=== PATIENT | male | born 1970 | race American Indian/Alaskan Native ===

== ENCOUNTER 2017-11-12 00:47 | Emergency (ER) | payer MEDICAID ==
[2017-11-12 00:58] VITALS: RESP 16; TEMP 98.5; BMI 39.0
--- NOTE | 2017-11-12 01:34 | ED PDOC ---
Arrival/HPI - General Historian: Patient <Christelle Chew A - Last Filed: 11/12/17 01:31> <Bernard Herman - Last Filed: 11/12/17 01:44> - General Chief Complaint: Medical Clearance Time Seen by Provider: 11/12/17 01:26 - History of Present Illness Narrative History of Present Illness (Text): 11/12/17 01:31 47yo male biba for generalized bodyache. Patient reports pain in his back, neck , foot and ankle. states he was seen by his PMD on Monday and had xray done. States he was given unknown analgesic, but his pharmacy will not fill it till Monday. He did not take any analgesic. He denies fever, chills, nausea, vomiting , chest pain, dizziness, trauma, focal weakness, any other complaint. (Christelle Chew A) Past Medical History - Provider Review Nursing Documentation Reviewed: Yes - Neurological Other/Comment: "I AM DISABLED" - Endocrine/Metabolic Other/Comment: "I HAD A LITTLE DIABETES BEFORE" - Psychiatric Hx Depression: Yes Hx Substance Use: No - Surgical History Other/Comment: "EAR ,NOSE,THROAT SURGERY" <Christelle Chew A - Last Filed: 11/12/17 01:31> Family/Social History - Physician Review Nursing Documentation Reviewed: Yes Family/Social History: Unknown Family HX Smoking Status: Unknown If Ever Smoked Hx Alcohol Use: No Hx Substance Use: No <Christelle Chew A - Last Filed: 11/12/17 01:31> Allergies/Home Meds <Christelle Chew A - Last Filed: 11/12/17 01:31> <Bernard Herman - Last Filed: 11/12/17 01:44> Allergies/Adverse Reactions: Allergies No Known Allergies Allergy (Unverified 04/06/17 01:01) Review of Systems - Physician Review All systems were reviewed & negative as marked: Yes - Review of Systems Constitutional: Normal Eyes: Normal ENT: Normal Respiratory: Normal Cardiovascular: Normal Gastrointestinal: Normal Genitourinary Male: Normal Musculoskeletal: Myalgias (Generalized bodyache) Skin: Normal Neurological: Normal Endocrine: Normal Hemo/Lymphatic: Normal Psychiatric: Normal <Christelle Chew A - Last Filed: 11/12/17 01:31> Physical Exam Vital Signs Reviewed: Yes Temperature: Afebrile Blood Pressure: Normal Pulse: Regular Respiratory Rate: Normal Appearance: Positive for: Well-Appearing, Non-Toxic, Comfortable Pain Distress: None Mental Status: Positive for: Alert and Oriented X 3 - Systems Exam Head: Present: Atraumatic, Normocephalic Pupils: Present: PERRL Extroacular Muscles: Present: EOMI Conjunctiva: Present: Normal Mouth: Present: Moist Mucous Membranes Neck: Present: Normal Range of Motion Respiratory/Chest: Present: Clear to Auscultation, Good Air Exchange. No: Respiratory Distress, Accessory Muscle Use Cardiovascular: Present: Regular Rate and Rhythm, Normal S1, S2. No: Murmurs Abdomen: Present: Normal Bowel Sounds. No: Tenderness, Distention, Peritoneal Signs Back: Present: Normal Inspection Upper Extremity: Present: Normal Inspection. No: Cyanosis, Edema Lower Extremity: Present: Normal Inspection. No: Edema Neurological: Present: GCS=15, CN II-XII Intact, Speech Normal Skin: Present: Warm, Dry, Normal Color. No: Rashes Psychiatric: Present: Alert, Oriented x 3, Normal Insight, Normal Concentration <Christelle Chew - Last Filed: 11/12/17 01:31> Vital Signs Temp Pulse Resp BP Pulse Ox 11/12/17 00:58 98.5 F 87 16 116/80 97 Medical Decision Making <Christelle Chew - Last Filed: 11/12/17 01:31> <Bernard Herman - Last Filed: 11/12/17 01:44> ED Course and Treatment: 11/12/17 01:35 PT is hemodynamically stable in ED. Ambulatory with steady gait. He had no focal neurological deficit. He notes that his pain is more on his foot/ankle. He have a prescription at his pharmacist for pain. His pain was controlled in ED with Toradol. 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 He was referred to his PMD. TRT ED for any new symptoms. (Christelle Chew) - Medication Orders Current Medication Orders: Discontinued Medications Ketorolac Tromethamine (Toradol) 60 mg IM STAT STA Stop: 11/12/17 01:35 - PA / [employer] / Resident Statement MD/DO has reviewed & agrees with the documentation as recorded. <Bernard Herman - Last Filed: 11/12/17 01:44> Disposition/Present on Arrival - Present on Arrival Any Indicators Present on Arrival: No History of DVT/PE: No History of Uncontrolled Diabetes: No Urinary Catheter: No History of Decub. Ulcer: No History Surgical Site Infection Following: None - Disposition Have Diagnosis and Disposition been Completed?: Yes Disposition Time: 01:35 Patient Plan: Discharge <Christelle Chew - Last Filed: 11/12/17 01:31> <Bernard Herman - Last Filed: 11/12/17 01:44> - Disposition Diagnosis: Myalgia Disposition: HOME/ ROUTINE Condition: STABLE Discharge Instructions (ExitCare): Musculoskeletal Pain (ED) Additional Instructions: Fill your prescription and take as directed follow up with your doctor Return to ED for any new symptoms Referrals: Elina Garcia MD [Primary Care Provider] - Follow up with primary Forms: [employer] ([place])
[2017-11-12 02:07] VITALS: BP 119/63; PULSE 73; O2SAT 99
== END 2017-11-12 02:07 | disposition home or self-care (01) ==
LOC: ED 00:47
DX: M79.1 Myalgia (principal)
CPT/HCPCS: 96372; 99282; J1885

== ENCOUNTER 2018-03-03 10:25 | Inpatient (IN) | payer MEDICARE, MEDICAID ==
[2018-03-03 10:25] VITALS: BMI 39.0
[2018-03-03 11:21] LABS: BASO # 0.02 K/mm3 (0.0-2.0); BASO % 0.4 % (0.0-3.0); EOS % 0.8 % (1.5-5.0); GRAN # 2.79 (1.4-6.5); GRAN % 58.1 % (50.0-68.0); HEMOGLOBIN 12.5 g/dL (14.0-18.0); LYMPH # 1.6 (1.2-3.4); LYMPH % 32.8 % (22.0-35.0); MEAN CELL VOLUME 87.4 fl (80.0-105.0); MEAN CORPUSCULAR HEMOGLOBIN 27.6 pg (25.0-35.0); MEAN CORPUSCULAR HGB CONC 31.6 g/dl (31.0-37.0); MEAN PLATELET VOLUME 12.8 fl (7.0-11.0); MONO # 0.4 (0.1-0.6); MONO % 7.9 % (1.0-6.0); RBC 4.53 10^6/uL (3.5-6.1); RED CELL DISTRIBUTION WIDTH 15.7 % (11.5-14.5); WHITE BLOOD COUNT 4.8 10^3/ul (4.5-11.0)
[2018-03-03 11:28] LABS: INR 1.07 (0.93-1.08); PROTHROMBIN TIME 12.3 SECONDS (9.4-12.5)
[2018-03-03 11:29] LABS: PARTIAL THROMBOPLASTIN TIME 30.7 Seconds (25.1-36.5)
[2018-03-03 11:33] LABS: VENOUS BLOOD GAS BASE EXCESS 4.5 mmol/L (0.0-2.0); VENOUS BLOOD GAS PO2 58 mm/Hg (30-55); VENOUS BLOOD PH 7.33 (7.32-7.43)
[2018-03-03 11:37] LABS: ALB/GLOB RATIO 1.2 (1.1-1.8); ALBUMIN 4.2 g/dL (3.0-4.8); ALT/SGPT 38 U/L (7-56); AST/SGOT 37 U/L (17-59); BLOOD UREA NITROGEN 17 mg/dL (7-21); CALCIUM 9.1 mg/dL (8.4-10.5); GFR AFRICAN-AMERICAN > 60; GFR NON-AFRICAN AMERICAN > 60
[2018-03-03 11:41] LABS: B-TYPE NATRIURETIC PEPTIDE 22.3 pg/mL (0-450)
[2018-03-03 11:45] LABS: TROPONIN I < 0.01 ng/mL
[2018-03-03 11:48] LABS: CK-MB 4.3 ng/mL (0.0-3.6)
--- NOTE | 2018-03-03 11:52 | RAD ---
HISTORY: rout med exam COMPARISON: No prior. TECHNIQUE: Chest PA and lateral FINDINGS: LUNGS: No active pulmonary disease. PLEURA: No significant pleural effusion identified. No pneumothorax apparent. CARDIOVASCULAR: Normal. OSSEOUS STRUCTURES: No significant abnormalities. VISUALIZED UPPER ABDOMEN: Normal. OTHER FINDINGS: None. IMPRESSION: No active disease.
[2018-03-03] MEDS ORDERED: Aspirin 325 mg EC Tablets PO STA (12:01)
[2018-03-03] MEDS ORDERED: Nitroglycerin 2% Ointment Foilpak UD TOP STA (12:01)
--- NOTE | 2018-03-03 12:02 | ED PDOC ---
Arrival/HPI - General Chief Complaint: Chest Pain Time Seen by Provider: 03/03/18 10:36 Historian: Patient - History of Present Illness Narrative History of Present Illness (Text): 03/03/18 12:02 A 47 year old obese male, whose past medical history includes diabetes, but denies hypertension, presents to the emergency department for chest pain "squeezing," which began 2 weeks ago. The patient states that the pain is gradually increasing and at first it began as 1 episode a day and now it is multiple episodes a day. The patient is complaining of associated shortness of breath and dizziness. He denies any OTC medication usage, fever, abdominal pain , or any other complaints at this time. Time/Duration: > week (2 weeks) Symptom Onset: Gradual Symptom Course: Other Quality: Other (squeezing) Severity Level: Mild Activities at Onset: Light Context: Home Past Medical History - Provider Review Nursing Documentation Reviewed: Yes - Cardiac Hx Cardiac Disorders: Yes - Pulmonary Hx Respiratory Disorders: No - Neurological Hx Neurological Disorder: Yes HX Cerebrovascular Accident: Yes Other/Comment: "I AM DISABLED" - HEENT Hx HEENT Disorder: No - Renal Hx Renal Disorder: No - Endocrine/Metabolic Hx Endocrine Disorders: Yes Hx Diabetes Mellitus Type 2: Yes Other/Comment: "I HAD A LITTLE DIABETES BEFORE" - Hematological/Oncological Hx Blood Disorders: No - Integumentary Hx Dermatological Disorder: No - Musculoskeletal/Rheumatological Hx Musculoskeletal Disorders: No - Gastrointestinal Hx Gastrointestinal Disorders: No - Genitourinary/Gynecological Hx Genitourinary Disorders: No - Psychiatric Hx Psychophysiologic Disorder: Yes Hx Anxiety: Yes Hx Depression: Yes Hx Schizophrenia: Yes Hx Substance Use: No - Surgical History Hx Tonsillectomy: Yes Other/Comment: "EAR ,NOSE,THROAT SURGERY" Family/Social History - Physician Review Nursing Documentation Reviewed: Yes Family/Social History: No Known Family HX Smoking Status: Unknown If Ever Smoked Hx Alcohol Use: No Hx Substance Use: No Allergies/Home Meds Allergies/Adverse Reactions: Allergies No Known Allergies Allergy (Unverified 03/03/18 10:34) Home Medications: Home Meds Medication Instructions Recorded Confirmed Atorvastatin [Lipitor] 20 mg PO DAILY 03/03/18 03/03/18 Cetirizine HCl [Zyrtec Allergy] 10 mg PO DAILY 03/03/18 03/03/18 Cyclobenzaprine [Cyclobenzaprine 10 mg PO DAILY 03/03/18 03/03/18 HCl] Diclofenac Sodium [Voltaren] 100 gm TP BID 03/03/18 03/03/18 Fluticasone Nasal [Flonase] 2 sprays NS DAILY 03/03/18 03/03/18 Montelukast [Singulair] 10 mg PO DAILY 03/03/18 03/03/18 metFORMIN [glucOPHAGE] 500 mg PO BID 03/03/18 03/03/18 traMADol [Ultram] 50 mg PO BID 03/03/18 03/03/18 Review of Systems - Physician Review All systems were reviewed & negative as marked: Yes - Review of Systems Constitutional: absent: Fevers Respiratory: SOB Cardiovascular: Chest Pain Gastrointestinal: absent: Abdominal Pain Neurological: Dizziness Physical Exam Vital Signs Reviewed: Yes Vital Signs Temp Pulse Pulse Resp BP Pulse Ox 03/03/18 15:00 69 18 131/73 97 03/03/18 14:50 97.9 F 91 H 91 H 19 129/83 03/03/18 12:40 71 19 129/83 96 03/03/18 10:35 97.9 F 86 20 167/93 H 96 Temperature: Afebrile Blood Pressure: Hypertensive Pulse: Regular Respiratory Rate: Normal Appearance: Positive for: Well-Appearing, Non-Toxic, Comfortable Pain Distress: None Mental Status: Positive for: Alert and Oriented X 3 Finger Stick Blood Glucose: 91 - Systems Exam Head: Present: Atraumatic, Normocephalic Pupils: Present: PERRL Extroacular Muscles: Present: EOMI Conjunctiva: Present: Normal Mouth: Present: Moist Mucous Membranes Neck: Present: Normal Range of Motion Respiratory/Chest: Present: Clear to Auscultation, Good Air Exchange. No: Respiratory Distress, Accessory Muscle Use Cardiovascular: Present: Regular Rate and Rhythm, Normal S1, S2. No: Murmurs Abdomen: No: Tenderness, Distention, Peritoneal Signs Back: Present: Normal Inspection Upper Extremity: Present: Normal Inspection. No: Cyanosis, Edema Lower Extremity: Present: Normal Inspection. No: Edema Neurological: Present: GCS=15, CN II-XII Intact, Speech Normal Skin: Present: Warm, Dry, Normal Color. No: Rashes Psychiatric: Present: Alert, Oriented x 3, Normal Insight, Normal Concentration Medical Decision Making ED Course and Treatment: 03/03/18 12:12 Impression: A47 year old male with chest pain and shortness of breath. Differential Diagnosis included but are not limited to: Plan: -- EKG -- Labs -- Ecotrin, Nitro-bid -- Urinalysis -- Reassess and disposition Progress Notes: - Lab Interpretations Lab Results: 03/03/18 10:55 03/03/18 10:55 Lab Results 03/03/18 10:55: Sodium 146, Chloride 105, Potassium 4.6, Carbon Dioxide 30, Anion Gap 16, BUN 17, Creatinine 1.0, Est GFR ( Amer) > 60, Est GFR (Non- Af Amer) > 60, Random Glucose 103, Calcium 9.1, Magnesium 1.8, Total Bilirubin 0.3, AST 37, ALT 38, Alkaline Phosphatase 74, Lactate Dehydrogenase 718 H, Total Creatine Kinase 435 H, CK-MB (CK-2) 4.3 H, CK-MB (CK-2) % Cancelled, Troponin I < 0.01, NT-Pro-B Natriuret Pep 22.3, Total Protein 7.8, Albumin 4.2, Globulin 3.6, Albumin/Globulin Ratio 1.2 03/03/18 10:55: pO2 58 H, VBG pH 7.33, VBG pCO2 61.0 H, VBG HCO3 32.2 H, VBG Total CO2 34.1 H, VBG O2 Sat (Calc) 93.7 H, VBG Base Excess 4.5 H, VBG Potassium 4.4, Sodium 140.0, Chloride 104.0, Glucose 105, Lactate 1.2, FiO2 21.0 , Venous Blood Potassium 4.4 03/03/18 10:55: WBC 4.8, RBC 4.53, Hgb 12.5 L, Hct 39.6 L, MCV 87.4, MCH 27.6, MCHC 31.6, RDW 15.7 H, Plt Count 187, MPV 12.8 H, Gran % 58.1, Lymph % (Auto) 32.8, [place] % (Auto) 7.9 H, Eos % (Auto) 0.8 L, Baso % (Auto) 0.4, Gran # 2.79, Lymph # (Auto) 1.6, [place] # (Auto) 0.4, Eos # (Auto) 0.0, Baso # (Auto) 0.02 03/03/18 10:55: PT 12.3, INR 1.07, APTT 30.7 03/03/18 10:44: POC Glucose (mg/dL) 91 - RAD Interpretation Radiology Orders: 03/03/18 10:36 CHEST TWO VIEWS (PA/LAT) [RAD] Stat - Medication Orders Current Medication Orders: Discontinued Medications Aspirin (Ecotrin) 325 mg PO STAT STA Stop: 03/03/18 12:02 Last Admin: 03/03/18 12:23 Dose: 325 mg Nitroglycerin (Nitro-Bid 2% Oint) 1 ea TOP STAT STA Stop: 03/03/18 12:02 Last Admin: 03/03/18 12:23 Dose: 1 ea Pneumococcal Polyvalent Vaccine (Pneumovax 23 Vaccine) 0.5 ml IM .ONCE ONE Stop: 03/03/18 15:10 - Scribe Statement The provider has reviewed the documentation as recorded by the Scribe Isamar Paulino Provider Scribe Attestation: All medical record entries made by the Scribe were at my direction and personally dictated by me. I have reviewed the chart and agree that the record accurately reflects my personal performance of the history, physical exam, medical decision making, and the department course for this patient. I have also personally directed, reviewed, and agree with the discharge instructions and disposition. Disposition/Present on Arrival - Present on Arrival Any Indicators Present on Arrival: No History of DVT/PE: No History of Uncontrolled Diabetes: No Urinary Catheter: No History of Decub. Ulcer: No History Surgical Site Infection Following: None - Disposition Have Diagnosis and Disposition been Completed?: Yes Diagnosis: Chest pain Disposition: HOSPITALIZED Disposition Time: 14:20 Patient Plan: Admission, Telemetry Condition: GOOD
[2018-03-03] MEDS ORDERED: Pneumococcal 23-Valent Vaccine IM ONE (15:09)
--- NOTE | 2018-03-03 17:44 | CARD ---
APPROVED REPORT EKG Measurement Heart [id number] <Conclusion> Unusual P axis, possible ectopic atrial rhythm T wave abnormality, consider lateral ischemia Consider old septal infarct Abnormal ECG
[2018-03-04 00:10] LABS: IRON 82 ug/dL (45-180)
[2018-03-04 00:19] LABS: % IRON SATURATION 26 % (20-55); TOTAL IRON BINDING CAPACITY 316 ug/dL (261-462)
[2018-03-04 06:04] VITALS: O2SAT 96
--- NOTE | 2018-03-04 06:25 | CP.PCM.PN ---
Subjective - Date & Time of Evaluation Date of Evaluation: 03/04/18 Time of Evaluation: 06:20 - Subjective Subjective: Tylenol was ordered for body aches. Patient was seen at bedside. Complaints of non specific chest pain. Still wants some pain medication. Denies sob, nausea, sweating, palpitation. Medical record was reviewed. This 47 year old male was admitted with squeezing chest pain that began 2 weeks ago. Has PMH of obesity, DM , CVA , disability, anxiety , depression. Objective - Vital Signs/Intake and Output Vital Signs (last 24 hours): Temp Pulse Resp BP Pulse Ox 98.6 F 89 20 139/74 96 03/04/18 06:00 03/04/18 06:00 03/04/18 06:00 03/04/18 06:00 03/04/18 06:00 Intake and Output: 03/03/18 03/04/18 18:59 06:59 Intake Total 720 Balance 720 - Medications Medications: Current Medications Aspirin (Ecotrin) 81 mg PO DAILY [facility] Atorvastatin Calcium (Lipitor) 20 mg PO DAILY [facility] Famotidine (Pepcid) 40 mg PO HS [facility] Fluticasone Propionate (Flonase) 1 actuation NS DAILY [facility] Insulin Human Regular (Humulin R Low) 0 units SC ACHS [facility] PRN Reason: Protocol Loratadine (Claritin) 10 mg PO DAILY [facility] Metformin HCl (Glucophage) 500 mg PO BID [facility] Montelukast Sodium (Singulair) 10 mg PO HS [facility] Tramadol HCl (Ultram) 50 mg PO BID [facility] - Labs Labs: PT 12.3 SECONDS (9.4-12.5) 03/03/18 10:55 INR 1.07 (0.93-1.08) 03/03/18 10:55 APTT 30.7 Seconds (25.1-36.5) 03/03/18 10:55 - Constitutional Appears: Well, No Acute Distress - Head Exam Head Exam: ATRAUMATIC, NORMAL INSPECTION, NORMOCEPHALIC Additional comments: Obese person. - Eye Exam Eye Exam: Normal appearance - ENT Exam ENT Exam: Normal External Ear Exam - Neck Exam Neck Exam: Normal Inspection - Respiratory Exam Respiratory Exam: NORMAL BREATHING PATTERN - Cardiovascular Exam Cardiovascular Exam: absent: JVD - GI/Abdominal Exam GI & Abdominal Exam: absent: Distended - Rectal Exam Rectal Exam: Deferred - Exam Additional comments: Deferred. - Extremities Exam Extremities Exam: Normal Inspection - Back Exam Back Exam: NORMAL INSPECTION - Neurological Exam Neurological Exam: Alert, Awake, Oriented x3 - Psychiatric Exam Psychiatric exam: Normal Affect, Normal Mood - Skin Skin Exam: Normal Color Assessment and Plan - Assessment and Plan (Free Text) Assessment: Non specific chest pain. Body aches. Obesity. DM. Plan: Tylenol 650 mg PO x 1. Motrin 600 mg PO x 1 . Continue present management as per PMD.
[2018-03-04 07:31] LABS: MEAN CELL VOLUME 87.1 fl (80.0-105.0); MEAN CORPUSCULAR HEMOGLOBIN 27.1 pg (25.0-35.0); MEAN CORPUSCULAR HGB CONC 31.1 g/dl (31.0-37.0); MEAN PLATELET VOLUME 12.9 fl (7.0-11.0); RBC 4.43 10^6/uL (3.5-6.1); RED CELL DISTRIBUTION WIDTH 15.7 % (11.5-14.5); WHITE BLOOD COUNT 5.1 10^3/ul (4.5-11.0)
[2018-03-04 07:43] LABS: BLOOD UREA NITROGEN 16 mg/dL (7-21); CALCIUM 8.8 mg/dL (8.4-10.5); GFR AFRICAN-AMERICAN > 60; GFR NON-AFRICAN AMERICAN > 60
[2018-03-04] MEDS: Insulin Reg-LOW-Coverage SC SCH ×4 (08:46→22:09)
[2018-03-04] MEDS: Fluticasone Nasal 50 mcg/Spray NS SCH (10:21)
--- NOTE | 2018-03-04 11:06 | HP ---
CHIEF COMPLAINT: Chest pain. HISTORY OF PRESENT ILLNESS: Mr. Anjum Og is a 47-year-old male with past medical history of diabetes mellitus, obesity, mentally challenged, hypertension, hypercholesterolemia, who came to the Emergency Room Department for chest pain. The chest pain , which began two weeks ago. The patient states that pain is gradually increasing. At first it began at one episode a day, but now it is multiple episodes a day. The patient is complaining of associated shortness of breath, dizziness. Denies [id number] medications. No fever, no chills. No nausea, vomiting or diarrhea. No hematuria, no hematochezia. No swelling of the legs. The patient still has chest pain like squeezing, mild. PAST MEDICAL HISTORY: History of cerebrovascular accident. According to the patient, "I'm disabled." Diabetes mellitus, anxiety, depression, schizophrenia, history of tonsillectomy. FAMILY HISTORY: Father and mother, noncontributory. HABITS: No smoking, no drugs, no ethanol. ALLERGIES: PATIENT IS NOT ALLERGIC WITH ANY MEDICATION. HOME MEDICATIONS: Lipitor, Zestril, Voltaren gel, Flonase, Singulair, Glucophage, tramadol REVIEW OF SYSTEMS: Patient is seen and examined at bedside in the ER, still having chest pain. No nausea, vomiting, or diarrhea. No hematuria, no hematochezia. No swelling of the leg. Feeling dizzy and short of breath. No fever, no chills. PHYSICAL EXAMINATION: VITAL SIGNS: Temperature 97.9, pulse 86, respiratory rate 20, blood pressure 167/93, pulse oximetry 96. HEENT: Head normocephalic, atraumatic. Eyes, PERRLA. Extraocular muscles intact. Conjunctivae clear. Nose patent. NECK: Supple, no carotid bruit. No JVD or thyromegaly. CHEST: Bilaterally symmetrical. HEART: S1, S2 positive. LUNGS: Clear to auscultation. ABDOMEN: Soft, bowel sounds present. No organomegaly. EXTREMITIES: No edema, no cyanosis. NEUROLOGICAL: Patient is awake, alert, moving all 4 extremities, no focal deficits. LABORATORY DATA: White blood cells 4.8, hemoglobin 12.5, hematocrit 39.6, platelets 187. Sodium 146, potassium 4.5, BUN 17, creatinine 1, glucose 103. ASSESSMENT AND PLAN: Mr. Anjum Og is a 47-year-old male with anemia, history of schizophrenia, came with chest pain, history of hypertension, hypercholesterolemia, history of cerebrovascular accident, history of ENT surgery, depression, anxiety. We admitted the patient. Did cardiac enzymes x3. Two sets are done, is within normal limits. Has history of anemia. We will do anemia workup. Cardiology consult called. Started on aspirin. We will start sliding scale and cholesterol medications. Gastrointestinal and deep venous thrombosis prophylaxis. Repeat labs. We will follow up. Elina Garcia MD MTDD
--- NOTE | 2018-03-04 11:59 | CP.PCM.CON ---
History of Present Illness - History of Present Illness History of Present Illness: Lying in bed, sleeping, snoring, easily awaken, pain on the left upper side of abdomen,below left ribs, no radiating, denies chest pain,denies shortness of breath Reason for consultation: Cardiac follow up, chest pain,shortness of breath, history of CVA, diabetes mellitus,hypertension,hyperlipidemia mentally challenged, depression,schizophrenia,COPD Brief history of present illness: A 47 year old male, morbidly obese, who came in to the ER due to gradually increasing chest pain. History of CVA, no residual weakness, diabetes mellitus, mentally challenged, depression, schizophrenia. Upon examination pain is on the left upper side of abdomen below the rib cage. Dull and Non radiating. Denies shortness of breath. Seen and examined by me and Dr. Putnam Review of Systems - Constitutional Additional comments: obese - Cardiovascular Additional comments: chest pain at left side below rib cage - Respiratory Additional comments: shortness of breath in ER - Gastrointestinal Additional comments: denies nausea and vomiting - Neurological Additional comments: mentally challenged,anxiety,schizophrenia,depression - Endocrine Additional Comments: diabetes Past Patient History - Past Social History Smoking Status: Unknown If Ever Smoked - CARDIAC Hx Cardiac Disorders: Yes - PULMONARY Hx Respiratory Disorders: No - NEUROLOGICAL Hx Neurological Disorder: Yes HX Cerebrovascular Accident: Yes Other/Comment: "I AM DISABLED" - HEENT Hx HEENT Problems: No - RENAL Hx Chronic Kidney Disease: No - ENDOCRINE/METABOLIC Hx Endocrine Disorders: Yes Hx Diabetes Mellitus Type 2: Yes Other/Comment: "I HAD A LITTLE DIABETES BEFORE" - HEMATOLOGICAL/ONCOLOGICAL Hx Blood Disorders: No - INTEGUMENTARY Hx Dermatological Problems: No - MUSCULOSKELETAL/RHEUMATOLOGICAL Hx Musculoskeletal Disorders: No - GASTROINTESTINAL Hx Gastrointestinal Disorders: No - GENITOURINARY/GYNECOLOGICAL Hx Genitourinary Disorders: No - PSYCHIATRIC Hx Psychophysiologic Disorder: Yes Hx Anxiety: Yes Hx Depression: Yes Hx Schizophrenia: Yes Hx Substance Use: No - SURGICAL HISTORY Hx Tonsillectomy: Yes Other/Comment: "EAR ,NOSE,THROAT SURGERY" Meds Allergies/Adverse Reactions: Allergies Allergy/AdvReac Type Severity Reaction Status Date / Time No Known Allergies Allergy Unverified 03/03/18 10:34 - Medications Medications: Current Medications Aspirin (Ecotrin) 81 mg PO DAILY [facility] Last Admin: 03/04/18 09:22 Dose: 81 mg Atorvastatin Calcium (Lipitor) 20 mg PO DAILY [facility] Last Admin: 03/04/18 09:22 Dose: 20 mg Famotidine (Pepcid) 40 mg PO [facility] Fluticasone Propionate (Flonase) 1 actuation NS DAILY [facility] Last Admin: 03/04/18 10:21 Dose: 1 spr Insulin Human Regular (Humulin R Low) [address] [facility] PRN Reason: Protocol Last Admin: 03/04/18 08:46 Dose: Not Given Loratadine (Claritin) 10 mg PO DAILY [facility] Last Admin: 03/04/18 09:22 Dose: 10 mg Metformin HCl (Glucophage) 500 mg PO BID [facility] Last Admin: 03/04/18 09:22 Dose: 500 mg Montelukast Sodium (Singulair) 10 mg PO [facility] Tramadol HCl (Ultram) 50 mg PO BID [facility] Last Admin: 03/04/18 09:22 Dose: 50 mg Physical Exam - Constitutional Appears: No Acute Distress - Eye Exam Eye Exam: Normal appearance - ENT Exam ENT Exam: Mucous Membranes Dry - Respiratory Exam Respiratory Exam: Clear to Auscultation Bilateral, NORMAL BREATHING PATTERN - Cardiovascular Exam Cardiovascular Exam: REGULAR RHYTHM, +S1, +S2 Additional comments: telemetry NSR 70's - GI/Abdominal Exam GI & Abdominal Exam: Normal Bowel Sounds, Soft - Neurological Exam Neurological exam: Alert, Oriented x3 - Psychiatric Exam Psychiatric exam: Normal Affect, Normal Mood - Skin Skin Exam: Intact, Normal Color, Warm Results - Vital Signs Recent Vital Signs: Last Vital Signs Temp 98.6 F 03/04/18 06:00 Pulse 78 03/04/18 10:00 Resp 20 03/04/18 06:00 BP 139/74 03/04/18 06:00 Pulse Ox 96 03/04/18 06:00 - Labs Result Diagrams: 03/04/18 07:00 03/04/18 07:00 Labs: Laboratory Results - last 24 hr 03/03/18 03/03/18 03/03/18 16:47 17:22 21:06 WBC RBC Hgb Hct MCV MCH MCHC RDW Plt Count MPV Sodium Potassium Chloride Carbon Dioxide Anion Gap BUN Creatinine Est GFR ( Amer) Est GFR (Non-Af Amer) POC Glucose (mg/dL) 76 97 Random Glucose Calcium Iron TIBC % Saturation Troponin I < 0.01 Triglycerides Cholesterol LDL Cholesterol Direct HDL Cholesterol TSH 3rd Generation 03/03/18 03/03/18 03/03/18 22:50 23:50 23:50 WBC RBC Hgb Hct MCV MCH MCHC RDW Plt Count MPV Sodium Potassium Chloride Carbon Dioxide Anion Gap BUN Creatinine Est GFR ( Amer) Est GFR (Non-Af Amer) POC Glucose (mg/dL) Random Glucose Calcium Iron 82 TIBC 316 % Saturation 26 Troponin I < 0.01 Triglycerides 108 Cholesterol 212 H LDL Cholesterol Direct 146 H HDL Cholesterol 37 TSH 3rd Generation 03/04/18 03/04/18 03/04/18 07:00 07:00 07:00 WBC 5.1 RBC 4.43 Hgb 12.0 L Hct 38.6 L MCV 87.1 MCH 27.1 MCHC 31.1 RDW 15.7 H Plt Count 165 MPV 12.9 H Sodium 142 Potassium 4.2 Chloride 104 Carbon Dioxide 28 Anion Gap 14 BUN 16 Creatinine 1.0 Est GFR ( Amer) > 60 Est GFR (Non-Af Amer) > 60 POC Glucose (mg/dL) Random Glucose 132 H Calcium 8.8 Iron TIBC % Saturation Troponin I Triglycerides Cholesterol LDL Cholesterol Direct HDL Cholesterol TSH 3rd Generation 1.94 03/04/18 03/04/18 07:41 11:40 WBC RBC Hgb Hct MCV MCH MCHC RDW Plt Count MPV Sodium Potassium Chloride Carbon Dioxide Anion Gap BUN Creatinine Est GFR ( Amer) Est GFR (Non-Af Amer) POC Glucose (mg/dL) 132 H 113 H Random Glucose Calcium Iron TIBC % Saturation Troponin I Triglycerides Cholesterol LDL Cholesterol Direct HDL Cholesterol TSH 3rd Generation Assessment & Plan - Assessment and Plan (Free Text) Assessment: A 47 year old male, morbidly obese, who came in to the ER due to gradually increasing chest pain. History of CVA, no residual weakness, hypertension,hyperlipidemia, diabetes mellitus, mentally challenged, depression, schizophrenia. Upon examination pain is on the left upper side of abdomen below the rib cage. Dull and Non radiating. Denies shortness of breath. No cardiac work up done in [facility]. Plan: Atypical chest pain Will order ECHO to assess LV function EKG showed NSR with T wave abnormality consider lateral ischemia TSH normal Troponin levels normal Recommend GI consult/work up Pulmonary on consult On ASA 81 mg daily,Lipitor 20 mg daily Continue current medications Continue current treatment Will follow up Thank you Dr. Garcia for giving us the opportunity to take care of Mr. Anjum Og
[2018-03-04 12:12] LABS: FOLATE 8.1 ng/mL
[2018-03-04] MEDS: MethylPREDNISolone 40 mg Vial IVP SCH (22:45)
--- NOTE | 2018-03-05 03:10 | PN ---
DATE: 03/04/2018 SUBJECTIVE: Patient is a 47-year-old male. Patient is seen and examined at bedside. No fever. No chills. No nausea, vomiting or diarrhea. No hematuria or hematochezia. No swelling of the leg. Still has chest pain, but improving. PHYSICAL EXAMINATION: VITAL SIGNS: Temperature 98.3, pulse 77, blood pressure 140/72, respiratory rate 19. HEENT: Head: Normocephalic, atraumatic. Eyes: PERRLA. Extraocular muscles are intact. Conjunctivae clear. Nose patent. Mucous membranes moist. NECK: Supple. No carotid bruit, JVD or thyromegaly. CHEST: Bilaterally symmetrical. HEART: S1 and S2 positive. LUNGS: Clear to auscultation. ABDOMEN: Soft. Bowel sounds present. No organomegaly. EXTREMITIES: No edema. No cyanosis. NEUROLOGIC: Patient is awake, alert, moving all 4 extremities. No focal deficit. MEDICATIONS: Claritin, doxycycline, Ecotrin, Flexeril, Flonase, metformin, insulin, Lipitor, Pepcid, Singulair, Solu-Medrol, tramadol. LABORATORY DATA: White blood cell is 5.1, hemoglobin 12.5, hematocrit 38.6, platelets 165. Sodium 142, potassium 4.2, BUN 16, creatinine 1, glucose 156, 113, hemoglobin A1c is 7.2. TSH 1.94. Cholesterol is 212, LDL is 146. ASSESSMENT AND PLAN: Mr. Anjum Og is a 47-year-old male with hypercholesterolemia, uncontrolled diabetes mellitus, hemoglobin A1c is 7.2, anemia, came with chest pain and shortness of breath. Patient is obese, history of severe palpitations,no other weakness, schizophrenia. According to Supervisor Operations, patient has atypical chest pain. Echo is ordered. EKG showed normal sinus rhythm with T-wave abnormality consistent with lateral ischemia. Troponin level is normal. Recommended gastrointestinal workup by the Cardiology. Consider aspirin and Lipitor. Appreciate Cardiology input. Meanwhile, we will continue present treatment. Gastrointestinal and deep venous thrombosis prophylaxis. Patient is taking Flexeril at home and it is in his home medication and he is very insistent that without that he has too much body aches. We will call Gastroenterology consult. We will follow up. Elina Garcia MD [place]ISE
--- NOTE | 2018-03-05 03:26 | CON ---
DATE: 03/04/2018 PULMONARY CONSULTATION REFERRING PHYSICIAN: Elina Garcia MD REASON FOR CONSULTATION: Chronic obstructive lung disease, may have sleep apnea syndrome. HISTORY OF PRESENT ILLNESS: This is a 47-year-old gentleman with past medical history significant for CVA, diabetes, anxiety disorder, depression, schizophrenia, comes in with shortness of breath, chest pain. Admit to have loud snoring, daytime sleepy and tired. Has some rhinitis, postnasal drip. No nausea, no abdominal pain, no dysuria. Does have some leg swelling. PAST MEDICAL HISTORY: As per history of present illness. ALLERGIES: NONE KNOWN. SOCIAL HISTORY: He is smoker. Denies any alcohol use. FAMILY HISTORY: No significant cardiopulmonary disease reported. MEDICATIONS: He is on Claritin 10 mg daily, Ecotrin 81 mg daily, Flexeril 10 mg daily, Flonase once spray each nostril daily, metformin 500 mg twice a day, insulin coverage, Lipitor 20 mg daily, Pepcid 40 mg at bedtime, Singulair 10 mg daily, Ultram 50 mg twice a day. REVIEW OF SYSTEM: No headache, rhinitis, postnasal drip, cough, shortness of breath, some chest discomfort. No nausea, no vomiting. No diarrhea, no dysuria. Does have some leg swelling. PHYSICAL EXAMINATION: VITAL SIGNS: Temperature is 98, heart rate is 78, respiratory rate is 18, blood pressure 141/80, pulse ox 96% on room air. HEENT: Moist mucous membrane. Crowded airway. Mallampati score is 4. NECK: Supple. No JVD. Has a short, thick neck and mild maxillary tenderness. LUNGS: Have scattered rhonchi wheezing. HEART: S1 and S2. ABDOMEN: Soft, nontender. No organomegaly. EXTREMITIES: Trace edema. NEUROLOGIC: Awake, alert, and follows simple commands. LABORATORY DATA: Shows hemoglobin 12. , hematocrit 38.6, WBC 5.1, platelet is 165. VBG shows pH 7.33, pCO2 is 61, O2 of 58. Sodium 142, potassium 4.2, chloride 104, bicarbonate 28, BUN 16, creatinine 1, glucose 132. Hemoglobin A1c 7.2. Calcium is 8.8. TSH 1.94. Microbiology: No culture is available. Has a chest x-ray done in ER yesterday, shows no infiltrate or effusion. IMPRESSION AND PLAN: Morbid obesity with chronic obstructive lung disease, may have a hypoventilation syndrome, history of schizophrenia, diabetes, may have rhinosinusitis. There is also questionable history of stroke in the past. According to patient, he had a sleep study done in the past which was positive and never got the BiPAP. I will suggest patient placing on BiPAP 12/8 with 40% oxygen while sleeping. We will also add Solu-Medrol 40 mg every 12 hour and doxycycline 100 mg twice a day. Gastric prophylaxis, deep venous thrombosis prophylaxis. Aspiration precaution. Fall precaution. Need to lose weight. Thank you and we will follow with you. Gurpreet Romero MD
--- NOTE | 2018-03-05 04:41 | CP.PCM.CON ---
<Carlos Erickson - Last Filed: 03/05/18 11:20> History of Present Illness - History of Present Illness History of Present Illness: Resident Carlos Erickson GI Consult Note: Subjective: Patient is a 47 year old male with a past medical history of CVA, DM, anxiety, depression, and schizrophrenia who was admitted for evaluation and treatment of chest pain which began several weeks ago after increasing the intensity of his exercise routine. States the pain is localized to the left chest wall and is characterized as a dull aching sensation. Exacerbated on palpation. Patient also admits to generalized diffuse abdominal discomfort which began several years ago without a provoking event. Associated with a feeling of fullness and belching after meals. Denies associated nausea/vomiting/changes in diet. Denies difficulty swallowing, pain with swallowing, and weight loss. Admits to tolerating diet. Admits to nonbloody, soft, brown stool x 1 per day. Currently denies fever, chills, chest pain, abdominal pain, N/V, diarrhea, constipation, and urinary symptoms. 12 point ROS negative except as indicated in HPI PMHx: CVA, DM, anxiety, depression, and schizophrenia PSHx: tonsillectomy Allergies: NKDA Social Hx: social ETOH use, denies illicit drug use Family hx: mother- unknown cancer PMD: Dr. Richardson Past Patient History - Past Social History Smoking Status: Unknown If Ever Smoked - CARDIAC Hx Cardiac Disorders: Yes - PULMONARY Hx Respiratory Disorders: No - NEUROLOGICAL Hx Neurological Disorder: Yes HX Cerebrovascular Accident: Yes Other/Comment: "I AM DISABLED" - HEENT Hx HEENT Problems: No - RENAL Hx Chronic Kidney Disease: No - ENDOCRINE/METABOLIC Hx Endocrine Disorders: Yes Hx Diabetes Mellitus Type 2: Yes Other/Comment: "I HAD A LITTLE DIABETES BEFORE" - HEMATOLOGICAL/ONCOLOGICAL Hx Blood Disorders: No - INTEGUMENTARY Hx Dermatological Problems: No - MUSCULOSKELETAL/RHEUMATOLOGICAL Hx Musculoskeletal Disorders: No - GASTROINTESTINAL Hx Gastrointestinal Disorders: No - GENITOURINARY/GYNECOLOGICAL Hx Genitourinary Disorders: No - PSYCHIATRIC Hx Psychophysiologic Disorder: Yes Hx Anxiety: Yes Hx Depression: Yes Hx Schizophrenia: Yes Hx Substance Use: No - SURGICAL HISTORY Hx Tonsillectomy: Yes Other/Comment: "EAR ,NOSE,THROAT SURGERY" Meds Allergies/Adverse Reactions: Allergies Allergy/AdvReac Type Severity Reaction Status Date / Time No Known Allergies Allergy Unverified 03/03/18 10:34 - Medications Medications: Current Medications Aspirin (Ecotrin) 81 mg PO DAILY [facility] Last Admin: 03/04/18 09:22 Dose: 81 mg Atorvastatin Calcium (Lipitor) 20 mg PO DAILY [facility] Last Admin: 03/04/18 09:22 Dose: 20 mg Cyclobenzaprine HCl (Flexeril) 10 mg PO DAILY [facility] Last Admin: 03/04/18 14:08 Dose: 10 mg Doxycycline Hyclate (Doryx) 100 mg PO Q12 [facility] PRN Reason: Protocol Last Admin: 03/04/18 22:04 Dose: 100 mg Famotidine (Pepcid) 40 mg PO HS [facility] Last Admin: 03/04/18 22:05 Dose: 40 mg Fluticasone Propionate (Flonase) 1 actuation NS DAILY [facility] Last Admin: 03/04/18 10:21 Dose: 1 spr Insulin Human Regular (Humulin R Low) 0 units SC ACHS [facility] PRN Reason: Protocol Last Admin: 03/04/18 22:09 Dose: Not Given Loratadine (Claritin) 10 mg PO DAILY [facility] Last Admin: 03/04/18 09:22 Dose: 10 mg Metformin HCl (Glucophage) 500 mg PO BID [facility] Last Admin: 03/04/18 17:56 Dose: 500 mg Methylprednisolone (Solu-Medrol) 40 mg IVP Q12 [facility] Last Admin: 03/04/18 22:45 Dose: 40 mg Montelukast Sodium (Singulair) 10 mg PO HS [facility] Last Admin: 03/04/18 22:05 Dose: 10 mg Tramadol HCl (Ultram) 50 mg PO BID [facility] Last Admin: 03/04/18 18:22 Dose: Not Given Physical Exam - Additional Findings Additional findings: Physical Examination: - Constitutional Appears: No Acute Distress - Eye Exam Eye Exam: Normal appearance - ENT Exam ENT Exam: Mucous Membranes Dry - Respiratory Exam Respiratory Exam: Clear to Auscultation Bilateral - Cardiovascular Exam Cardiovascular Exam: REGULAR RHYTHM, +S1, +S2 - GI/Abdominal Exam GI & Abdominal Exam: Normal Bowel Sounds, Soft, obese, non tender to palpation; no guarding, no rebound tenderness, no organomegaly - Neurological Exam Neurological exam: Alert, Oriented x3, responds to verbal stimuli, follows commands, moves extremities past midline - Psychiatric Exam Psychiatric exam: Normal Affect, Normal Mood - Skin Skin Exam: Intact, Normal Color, Warm Results - Vital Signs Recent Vital Signs: Last Vital Signs Temp 98.4 F 03/05/18 00:01 Pulse 66 03/05/18 02:00 Resp 20 03/05/18 00:01 BP 130/74 03/05/18 00:01 Pulse Ox 96 03/05/18 00:01 - Labs Result Diagrams: 03/04/18 07:00 03/04/18 07:00 Labs: Laboratory Results - last 24 hr 03/03/18 03/03/18 03/04/18 23:50 23:50 07:00 WBC 5.1 RBC 4.43 Hgb 12.0 L Hct 38.6 L MCV 87.1 MCH 27.1 MCHC 31.1 RDW 15.7 H Plt Count 165 MPV 12.9 H Sodium Potassium Chloride Carbon Dioxide Anion Gap BUN Creatinine Est GFR ( Amer) Est GFR (Non-Af Amer) POC Glucose (mg/dL) Random Glucose Hemoglobin A1c 7.2 H Calcium Vitamin B12 304 Folate 8.1 TSH 3rd Generation 03/04/18 03/04/18 03/04/18 07:00 07:00 07:41 WBC RBC Hgb Hct MCV MCH MCHC RDW Plt Count MPV Sodium 142 Potassium 4.2 Chloride 104 Carbon Dioxide 28 Anion Gap 14 BUN 16 Creatinine 1.0 Est GFR ( Amer) > 60 Est GFR (Non-Af Amer) > 60 POC Glucose (mg/dL) 132 H Random Glucose 132 H Hemoglobin A1c Calcium 8.8 Vitamin B12 Folate TSH 3rd Generation 1.94 03/04/18 03/04/18 11:40 16:19 WBC RBC Hgb Hct MCV MCH MCHC RDW Plt Count MPV Sodium Potassium Chloride Carbon Dioxide Anion Gap BUN Creatinine Est GFR ( Amer) Est GFR (Non-Af Amer) POC Glucose (mg/dL) 113 H 156 H Random Glucose Hemoglobin A1c Calcium Vitamin B12 Folate TSH 3rd Generation Assessment & Plan - Assessment and Plan (Free Text) Assessment: Assessment and Plan: Patient is a 47 year old male with a past medical history of CVA, DM, anxiety, depression, and anxiety who was admitted for evaluation and treatment of chest pain. ACS ruled out. Likely atypical, musculoskeletal in nature secondary to exercise. GI consulted for evaluation and treatment of abdominal discomfort. Abdominal Discomfort - likely secondary to dyspepsia - no acute GI endoscopic intervention required at this time - patient- trial of omeprazole 40mg PO daily for 30 days - patient education provided- avoid laying down flat after meals, as this may worsen symptoms Preventive Care - colonoscopy performed in 2016 in [facility]- no acute findings - follow up with outpatient GI physician Thank you for the opportunity to participate in the care of this patient. GI team will sign off that this time. Patient seen with, case reviewed with, and plan approved by attending physician , Dr. Rodríguez. <Niko Rodríguez - Last Filed: 03/05/18 12:52> Meds - Medications Medications: Current Medications Aspirin (Ecotrin) 81 mg PO DAILY [facility] Last Admin: 03/05/18 10:29 Dose: 81 mg Atorvastatin Calcium (Lipitor) 20 mg PO DAILY [facility] Last Admin: 03/05/18 10:29 Dose: 20 mg Cyclobenzaprine HCl (Flexeril) 10 mg PO DAILY [facility] Last Admin: 03/05/18 10:29 Dose: 10 mg Doxycycline Hyclate (Doryx) 100 mg PO Q12 [facility] PRN Reason: Protocol Last Admin: 03/05/18 10:28 Dose: 100 mg Famotidine (Pepcid) 40 mg PO HS [facility] Last Admin: 03/04/18 22:05 Dose: 40 mg Fluticasone Propionate (Flonase) 1 actuation NS DAILY [facility] Last Admin: 03/05/18 10:29 Dose: 1 spr Insulin Human Regular (Humulin R Low) 0 units SC ACHS [facility] PRN Reason: Protocol Last Admin: 03/05/18 08:30 Dose: 1 units Loratadine (Claritin) 10 mg PO DAILY [facility] Last Admin: 03/05/18 10:29 Dose: 10 mg Metformin HCl (Glucophage) 500 mg PO BID [facility] Last Admin: 03/05/18 10:28 Dose: 500 mg Methylprednisolone (Solu-Medrol) 40 mg IVP Q12 [facility] Last Admin: 03/05/18 10:29 Dose: 40 mg Montelukast Sodium (Singulair) 10 mg PO HS [facility] Last Admin: 03/04/18 22:05 Dose: 10 mg Pantoprazole Sodium (Protonix Ec Tab) 40 mg PO 0600 [facility] Tramadol HCl (Ultram) 50 mg PO BID [facility] Last Admin: 03/05/18 10:28 Dose: 50 mg Results - Vital Signs Recent Vital Signs: Last Vital Signs Temp 97.8 F 03/05/18 12:00 Pulse 72 03/05/18 12:00 Resp 20 03/05/18 12:00 BP 147/77 03/05/18 12:00 Pulse Ox 96 03/05/18 06:00 - Labs Result Diagrams: 03/04/18 07:00 03/04/18 07:00 Labs: Laboratory Results - last 24 hr 03/04/18 03/04/18 03/05/18 16:19 21:07 07:36 POC Glucose (mg/dL) 156 H 144 H 163 H Attending/Attestation - Attestation I have personally seen and examined this patient.: Yes I have fully participated in the care of the patient.: Yes I have reviewed all pertinent clinical information: Yes Notes (Text): 03/05/18 12:47 I have seen and examined patient with GI fellow and nuclear medical tech. Agree with above documentation with the following additions. In brief, this is a 47 year old male with history of DM, anxiety, CVA, schizophrenia, who was admitted to hospital with complaint of progressive chest pain. GI called for evaluation of LUQ abdominal pain which he describes is 5/10 intensity which has been present for the past several months at times associated with food consumption. He reports intermittent constipation with relief of abdominal pain following bowel movements. He denies nausea, vomiting, fever/chills, weight loss, or rectal bleeding. He claims to have had a colonoscopy 2 years ago which was normal as per patient. Review of vitals from today are normal. DM CVA Schizophrenia Chest pain Abdominal pain - symptoms suggestive of non-ulcer dyspepsia given absence of alarm or worrisome features on examination today - Diet as tolerated - Begin once daily PPI therapy - Follow up cardiology recommendations - Obtain copies of prior endoscopic reports - Maintain bowel regimen to prevent constipation - No further planned inpatient GI interventions, suggest additional outpatient follow up with consideration of EGD if symptoms persist. Will sign off case, please reconsult as necessary, thank you. Case discussed with Dr. Garcia.
[2018-03-05] MEDS: Insulin Reg-LOW-Coverage SC SCH ×4 (08:30→22:12)
[2018-03-05] MEDS: Fluticasone Nasal 50 mcg/Spray NS SCH (10:29)
[2018-03-05] MEDS: MethylPREDNISolone 40 mg Vial IVP SCH ×2 (10:29→21:22)
--- NOTE | 2018-03-05 11:06 | PQF COPD ---
This form is a permanent part of the medical record Clarification of your documentation is requested to better reflect the severity of illness and intensity of treatment of your patient. Pt admitted w/ atypical chest pain. Cardiology ruled out ACS. Pul treating w/ Duonebs & IV Ster. Please clarify if principle reason for admission is due to Acute exer. of COPD Indicators present [x] Documented diagnosis of COPD [] X-ray findings of [] Decreased breath sounds [] Chronic home O2 [] Chronic hypoxemia [] O2 saturation:[]__ [] CO2 retention [x] Smoking history/environmental exposure [x] SOB/ increased respiratory rate [] Other: [] Location in the medical record that reflects the above clinical findings: [x] Card & Pul consults Treatment Provided: [x] Duonebs, IV Solu-medrol PHYSICIAN'S RESPONSE x Based on your medical judgment of the clinical indicators outlined above, are you treating this patient for a known or suspected: []x Acute exacerbation of COPD [] Acute Asthma ( intermittent, persistent , mild, moderate, severe ) [] Acute bronchitis [] Chronic obstructive bronchitis with acute exacerbation [] Other, please indicate []__ [] If Unable to Determine, please check the box, sign and date. Present On Admission (POA) Indicator: [x] Present at the time of admission [] Not present at the time of admission [] Clinically Undetermined In responding to this query, please exercise your independent professional judgment. The fact that a question is asked does not imply that any particular answer is desired or expected. Thank you for your clarification on this documentation. If you have any questions please call:[ ] [phone] * Thank you, [ ] Cely Samson Rn [employer] police officer [place]
[2018-03-05] MEDS ORDERED: Aminophylline 25 mg/ml Inj ONE (12:15)
--- NOTE | 2018-03-05 13:51 | PN ---
DATE: 03/05/2018 LOCATION: The patient is in room 273, bed 1. REASON FOR CONSULTATION: Chest pain, abdominal pain, axillary area pain, history of CVA in the past, diabetes mellitus, hypertension, hyperlipidemia, mentally challenged, depression, schizophrenia, COPD, probably has also sleep apnea. SUBJECTIVE: The patient is sitting in chair comfortably. He still complains pain in the left upper quadrant of abdomen; left axillary area; right axillary area and sometime in the upper chest and sometime in the shoulder, practically he is complaining pain on multiple points. In the left axillary area, the patient also has tenderness over the area of the pain. PHYSICAL EXAMINATION: VITAL SIGNS: Blood pressure 135/88, respirations 20, pulse 73, temperature 98.3. HEENT: Head is normocephalic. Eyes: Pupils normal. Conjunctivae normal. Nose and throat normal. NECK: JVP low. Carotids equal. THORAX: AP diameter normal. LUNGS: No significant rales. CARDIOVASCULAR: S1 and S2. ABDOMEN: Protuberant. No organomegaly. EXTREMITIES: No clubbing. No cyanosis. LABORATORY DATA: WBC 5.1, hemoglobin 12, hematocrit 38.6, platelet 165. Random sugar 163. Sodium 146, potassium 4.6, BUN 17, creatinine 1. Random glucose 97. LDH 718. Total CPK 435. CPK-MB 4.3. Troponin x2 less than 0.01. DIAGNOSES: Chest pain, atypical, most likely musculoskeletal; hypertension; hyperlipidemia; diabetes mellitus; mentally challenged; history of schizophrenia and depression; morbid obesity. PLAN: The patient will have stress test today. He is already on doxycycline 100 mg p.o. every 12 hours, aspirin 81 daily, cyclobenzaprine 10 mg daily, metformin 500 b.i.d., atorvastatin 20 daily, famotidine 40 mg p.o. at bedtime, Protonix 40 daily, Singulair 10 mg at bedtime, methylprednisolone 40 mg IV every 12 hours. Advised the patient to lose weight. Further recommendation will be given after stress test, but seems to be atypical, sounds like musculoskeletal type of pain and we advised the patient also lose weight. Gurpreet Putnam MD [facility] # [id number]
--- NOTE | 2018-03-05 20:40 | PN ---
DATE: 03/05/2018 REFERING PHYSICIAN: Elina Garcia MD SUBJECTIVE: He is sitting up in a chair. Night was unremarkable, used the BiPAP okay. Still has rhinitis, postnasal drip, cough, shortness of breath. No chest pain. No nausea, no vomiting, no diarrhea. Does have leg swelling. OBJECTIVE: GENERAL: In no acute distress. VITAL SIGNS: Temperature is 98, heart rate 70, respiratory rate is 20, blood pressure 148/94, pulse ox is 96% on room air. HEENT: Moist mucous membrane. Crowded airway. Mallampati score is four. NECK: Short thick neck. LUNGS: Have a prolonged expiratory phase with rhonchi and wheezing. HEART: S1 and S2. ABDOMEN: Soft, nontender. No organomegaly. EXTREMITIES: There is edema. NEUROLOGIC: Awake, alert, and follows simple command. MEDICATIONS: He is on Claritin 10 mg daily, Doxycycline 100 mg twice a day, Ecotrin 81 mg daily, Flexeril 10 mg daily, Flonase once spray to each nostril daily, metformin 5 mg twice a day, insulin coverage, Lipitor 20 mg daily, Pepcid 40 mg at bedtime, Protonix 40 mg daily, Singulair 10 mg daily, Solu-Medrol 40 mg every 12 hour, Ultram 50 mg twice a day. LABORATORY DATA: Shows blood sugar this morning 189. Has a myocardial stress test done, report is pending. IMPRESSION AND PLAN: Morbid obesity, chronic obstructive lung disease, may have a hypoventilation syndrome, schizophrenia, diabetes, rhinosinusitis. Pulmonary point of view doing okay. We will continue BiPAP while sleeping. Keep head 45 degrees. IV and inhaled bronchodilator, gastric prophylaxis. Fall precaution. Follow up labs in the morning. Thank you and we will follow with you. Guprreet Romero MD
--- NOTE | 2018-03-06 03:03 | PN ---
DATE: 03/05/2018 SUBJECTIVE: The patient is 47-year-old male. The patient was seen and examined on the bedside, looking comfortable. Night was unremarkable. No change of the status, used BiPAP. Has rhinitis, post nasal drip, coughing, and shortness of breath. No fever. No chills. No nausea, vomiting, or diarrhea. No hematuria or hematochezia. PHYSICAL EXAMINATION: VITAL SIGNS: Temperature 98, heart rate 70, respiratory rate 20, blood pressure 148/94, pulse oximetry 96% on room air. HEENT: Head, normocephalic and atraumatic. Eyes, PERRLA. Extraocular muscles are intact. Conjunctivae clear. Nose patent. Mucous membranes moist. NECK: Supple. No carotid bruit. No JVD or thyromegaly. CHEST: Bilaterally symmetrical. HEART: S1, S2 positive. LUNGS: Clear to auscultation. ABDOMEN: Soft. Bowel sounds present. No organomegaly. EXTREMITIES: No edema. No cyanosis. NEUROLOGIC: Patient is awake, alert. Follows simple commands. MEDICATIONS: Claritin, doxycycline, Ecotrin, Flexeril, Flonase, metformin, insulin coverage, Lipitor, Pepcid, Protonix, Singulair; Solu-Medrol, tapering dose and tramadol. LABORATORY DATA: Sugar is 189. We do not have recent labs today, but I reviewed old labs. Patient went for stress test today. ASSESSMENT AND PLAN: Mr. Anjum Og is a 47-year-old male with morbid obesity,mentally challenged, chronic obstructive lung disease looks like hypoventilation syndrome, schizophrenia, diabetes, rhinosinusitis. We will continue bilevel positive airway pressure while sleeping. IV and inhaled bronchodilators. Gastric prophylaxis. Fall precautions. went for stress test. Results are pending. Reviewed Dr. Putnam's notes and Dr. Romero's note and Dr. Niko Rodríguez's note also. Patient is on doxycycline. I recommended to lose weight. According to it architecture analyst, chest pain looks like musculoskeletal type. Diabetes mellitus, history of schizophrenia and depression, history of cerebrovascular accident. Patient has history of constipation also with a relief of abdominal pain with bowel movement. According to GI, no further planned inpatient gastrointestinal intervention, suggested the patient to have outpatient follow up with consideration of esophagogastroduodenoscopy, if symptoms persist. Global Commodity Manager signed off the case. We will follow up. Elina Garcia MD [facility]
[2018-03-06] MEDS ORDERED: Pantoprazole 40 mg EC Tab PO SCH (06:00)
[2018-03-06 07:23] LABS: HEMOGLOBIN 12.7 g/dL (14.0-18.0); MEAN CELL VOLUME 86.8 fl (80.0-105.0); MEAN CORPUSCULAR HEMOGLOBIN 27.5 pg (25.0-35.0); MEAN CORPUSCULAR HGB CONC 31.8 g/dl (31.0-37.0); MEAN PLATELET VOLUME 13.1 fl (7.0-11.0); RBC 4.61 10^6/uL (3.5-6.1); RED CELL DISTRIBUTION WIDTH 15.4 % (11.5-14.5)
[2018-03-06 07:46] LABS: ALB/GLOB RATIO 1.3 (1.1-1.8); ALBUMIN 4.4 g/dL (3.0-4.8); ALT/SGPT 33 U/L (7-56); AST/SGOT 18 U/L (17-59); BLOOD UREA NITROGEN 18 mg/dL (7-21); CALCIUM 9.5 mg/dL (8.4-10.5); GFR AFRICAN-AMERICAN > 60; GFR NON-AFRICAN AMERICAN > 60
[2018-03-06] MEDS: Insulin Reg-LOW-Coverage SC SCH ×3 (08:31→17:19)
[2018-03-06] MEDS: Fluticasone Nasal 50 mcg/Spray NS SCH (12:39)
[2018-03-06] MEDS: MethylPREDNISolone 40 mg Vial IVP SCH (12:40)
--- NOTE | 2018-03-06 14:03 | PN ---
DATE: 03/06/2018 REASON FOR CONSULTATION AND FOLLOWUP: Cardiac evaluation, chest pain, abdominal pain, status post stress test 2 days protocol. SUBJECTIVE: The patient denies any chest pain, shortness of breath, or any palpitations. OBJECTIVE: GENERAL: Not in apparent distress. VITAL SIGNS: Temperature afebrile, heart rate 70, blood pressure 116/68. HEENT: PERRLA. Extraocular muscles are intact. NECK: Supple. No carotid bruits or thyromegaly. CHEST: Clear to auscultation. HEART: S1 and S2, regular. ABDOMEN: Soft. EXTREMITIES: Clubbing and cyanosis negative. LABORATORY DATA: Blood workup as follows: WBC 11, hemoglobin 12.3, hematocrit 40, platelet count 188. Chemistry shows sodium 141, potassium 4, chloride 103, carbon dioxide 26, anion gap of 16. BUN 18 and creatinine 0.7. Total protein 7.8, albumin 4.4. Albumin/globulin ratio 1.3. IMPRESSION: Atypical chest pain, pain all over the body, mentally challenged, morbid obesity, body mass index 40.4 kg/m2, history of chronic obstructive pulmonary disease, history of schizophrenia, history of depression, history of as mentioned mentally challenged, hypertension, hyperlipidemia, possibly obstructive sleep apnea, diabetes, hypertension, history of cerebrovascular accident, multiple risks for coronary artery disease. The patient underwent a stress test 2 days protocol. First has done. The patient is going to downstairs to get money. I held the patient to get a nuclear scan, so he can go after that. Waiting for the nuclear scan to read and completed. Interim, continue aspirin and the rest of the baseline medications. I suggested a stress test to rule out underlying coronary artery disease, multiple risk factors for coronary artery disease, also the patient is mentally challenged, may not explain the full symptoms of the coronary artery disease, but so far is stable and wait for the nuclear test to be completed. Interim, we will discontinue telemetry. Once the test is completed, we will follow the results. Thank you Dr. Garcia, for providing us the opportunity in taking care of the patient, Earle. We will follow with you. Gurpreet Day MD [facility] # [id number]
[2018-03-06 19:11] VITALS: BP 140/99; PULSE 95; RESP 17; TEMP 98.4
--- NOTE | 2018-03-06 21:30 | CARD ---
APPROVED REPORT Protocol: LEXISCAN Test Type: Lexiscan Sestamibi Stress Test Attending Physician: Dr. Gurpreet Putnam Referring Physician: Dr. Elina Garcia Test Indications: CAD Height:5 ft 7 in Weight:290lbs Medications: Aspirin,Lipitor,Flexeril,Doryx, Pepcid,Flonase, Humulin R,. Claritin,Glucophage,Solu-Medrol, Singulair,Protonix, Ultram,Tramadol HCl Medical History: 47 YEAR OLD MALE WITH A H/O HTN AND DIABETES Target HR: 172 bpm Resting ECG: RSR. Resting Heart Rate: 73 bpm Resting Blood Pressure: /mmHg Submaximum (85%): 146 bpm PROCEDURE Pharmacologic stress testing was performed using 0.4mg per 5ml of regadenoson given intravenously over 7-10 seconds. Reversal agent aminophyline 100 mg, given intravenously for Dyspnea. POST EXERCISE Reason for Termination: Protocol completed Target HR: No Max HR: 90 bpm 62% of Maximum Predicted HR: 172 bpm Exercise duration: 00:41 min:sec, 0 Stage Exercise capacity: 1.0METs Max Blood Pressure: 126/68mmHg Blood Pressure response to exercise: normal resting BP - appropriate response Heart Rate response to exercise: appropriate Chest Pain: No, none Angina index: 0 Arrhythmia: No, none ST Change: No, none Deviation: 0 mm TEST SUMMARY [id number]/.[id number]. [id number]/.0. INFUSIONDOSE 100:[id number]/.0. [id number]. INTERPRETATION Stress EKG Conclusion: IV LEXISCAN NUCLEAR STRESS TEST NEGATIVE FOR CHEST PAIN AND NEGATIVE FOR ST-T CHANGES. NUCLEAR SCAN REPORT PENDING. Signed by Gurpreet Putnam Electronically Approved: 03/05/2018 14:17:41 EXAM: Myocardial Perfusion REST/STRESS Stress Test Type: Pharmacologic Imaging Protocol Rest Spect myocardial perfusion imaging was performed in supine position 45 minutes following the injection of 10.3 mCi of Tc-99 Myoview. At peak stress, the patient was injected intravenously with 30.5mCi of Tc-99 tetrofosmin after an infusion time of 0 minutes and 10 seconds. Gated Stress Spect was performed 65 minutes after intravenous Tc-99 Myoview injection. The images were gated to evaluate regional wall motion and calculate ventricular ejection fraction.Images were reconstructed using backfilter projection method in short horizontal and verticle long axis. Spect slices were generated. LV Perfusion The quality of the study is good. The left ventricle is mildly enlarged in size with thickened myocardium. The right ventricle is unremarkable. The lung uptake is normal. The distribution of tracer reveals mildy and diffusely decreased perfusion in the inferior wall on the stress study. The remainder of the LV myocardium is unremarkable. The rest myocardial perfusion study shows no significant change. Wall Motion Wall motion study shows good contractility of the left ventricle. LVEF = 78%. Conclusion 1. Essentially normal SPECT myocardial perfusion study. 2. Fixed, inferior defect is most likely due to diaphrgmatic attenuation. 3. Normal gated wall motion and thicknening of the left ventricle.
--- NOTE | 2018-03-06 23:53 | PN ---
DATE: 03/06/2018 REFERRING PHYSICIAN: Elina Garcia MD. SUBJECTIVE: He is out of bed to chair. Night was unremarkable. Feels better, tolerated CPAP well. No headache, no rhinitis. Cough is better. Nausea is better. No dysuria. No leg pain or leg swelling. OBJECTIVE: GENERAL: In no acute distress. VITAL SIGNS: Temperature is 98, heart rate 95, respiratory is 18, blood pressure 140/99, pulse of 96% room air. HEENT: Moist mucous membrane. Crowded airway. NECK: Supple. No JVD. LUNGS: Has few scattered rhonchi, overall fair airflow. No wheezing. HEART: S1 and S2. ABDOMEN: Soft, nontender, no organomegaly. EXTREMITIES: No edema. NEUROLOGIC: Awake, alert and follows simple command. MEDICATIONS: Revealed no new changes reported since yesterday. LABORATORY DATA: Shows hemoglobin 12.7, hematocrit 40.0, WBC 11.0, platelet is 188. Sodium 141, potassium 4.8, chloride 103, bicarbonate 27, BUN 18, creatinine 0.9, glucose 131, calcium 9.5, AST 18, ALT 33, alk phos is 82. Albumin is 4.4. Has a myocardial stress test done today which was essentially normal LV ejection fraction 78%. IMPRESSION AND PLAN: Morbid obesity, chronic obstructive lung disease, may have sinusitis, hypoventilation syndrome, schizophrenia, diabetes. Spoke to nursing staff. The patient can be discharged home on tapered dose of steroids, antibiotics, outpatient attended sleep study, PFT, fall precaution. Need to lose weight. 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 Thank you and we will follow with you. Gurpreet Romero MD
== END 2018-03-06 19:47 | disposition home or self-care (01) | DRG 191 ==
LOC: ED 10:25 → ERH 12:47 → 2RSO 15:34
PROVIDERS: ADMIT Internal Medicine; ATTEND Internal Medicine
PROC: 5A09357 Assistance with Respiratory Ventilation, Less than 24 Consecutive Hours, Continuous Positive Airway Pressure (ICD-10-PCS; principal; 2018-03-04)
DX: J44.1 Chronic obstructive pulmonary disease with (acute) exacerbation (principal); E66.2 Morbid (severe) obesity with alveolar hypoventilation; Z68.41 Body mass index [BMI] 40.0-44.9, adult; R07.89 Other chest pain; I10 Essential (primary) hypertension; F20.9 Schizophrenia, unspecified; E78.00 Pure hypercholesterolemia, unspecified; D64.9 Anemia, unspecified; F41.9 Anxiety disorder, unspecified; F32.9 Major depressive disorder, single episode, unspecified; E11.65 Type 2 diabetes mellitus with hyperglycemia; E78.5 Hyperlipidemia, unspecified; R10.13 Epigastric pain; J32.9 Chronic sinusitis, unspecified; J31.0 Chronic rhinitis; R09.82 Postnasal drip; R10.12 Left upper quadrant pain; K59.00 Constipation, unspecified; Z86.73 Personal history of transient ischemic attack (TIA), and cerebral infarction without residual deficits; Z79.84 Long term (current) use of oral hypoglycemic drugs

== ENCOUNTER 2018-04-11 17:35 | Emergency (ER) | payer MEDICARE, MEDICAID ==
[2018-04-11 17:36] VITALS: BMI 39.0
--- NOTE | 2018-04-11 17:56 | ED PDOC ---
Arrival/HPI - General Chief Complaint: Chest Pain Time Seen by Provider: 04/11/18 17:49 Historian: Patient - History of Present Illness Narrative History of Present Illness (Text): 04/11/18 17:53 Patient is a 47 year old male whose past medical history includes depression and diabetes, who presents to the emergency department complaining of sharp, aching, lateral right sided chest pain, which has been constant for the past 3 days. Patient reports that the pain started 3 days ago while at the gym exercising, where he felt a muscle strain. He admits that his pain is exacerbated with speaking and denies experiencing any chest pain prior to 3 days ago. He also mentions recovering from common cold with associated cough 3- 4 days ago. Patient denies fevers, chills, cough, shortness of breath, abdominal pain, nausea, vomiting, diarrhea, back pain, neck pain, headache, dizziness, or any other complaint. Time/Duration: < week Symptom Course: Unchanged, Other (constant) Quality: Aching, Stabbing Activities at Onset: Significant (exercising) Past Medical History - Provider Review Nursing Documentation Reviewed: Yes - Infectious Disease Hx of Infectious Diseases: None - Cardiac Hx Hypertension: Yes - Pulmonary Hx Respiratory Disorders: No - Neurological Hx Neurological Disorder: Yes HX Cerebrovascular Accident: Yes Other/Comment: "I AM DISABLED" - HEENT Hx HEENT Disorder: No - Renal Hx Renal Disorder: No - Endocrine/Metabolic Hx Endocrine Disorders: Yes Hx Diabetes Mellitus Type 2: Yes Other/Comment: "I HAD A LITTLE DIABETES BEFORE" - Hematological/Oncological Hx Blood Disorders: No - Integumentary Hx Dermatological Disorder: No - Musculoskeletal/Rheumatological Hx Musculoskeletal Disorders: No - Gastrointestinal Hx Gastrointestinal Disorders: No - Genitourinary/Gynecological Hx Genitourinary Disorders: No - Psychiatric Hx Psychophysiologic Disorder: Yes Hx Anxiety: Yes Hx Depression: Yes Hx Schizophrenia: Yes Hx Substance Use: No - Surgical History Hx Tonsillectomy: Yes Other/Comment: "EAR ,NOSE,THROAT SURGERY" - Anesthesia Hx Anesthesia Reactions: No Family/Social History - Physician Review Nursing Documentation Reviewed: Yes Family/Social History: No Known Family HX Smoking Status: Unknown If Ever Smoked Hx Alcohol Use: No Hx Substance Use: No Allergies/Home Meds Allergies/Adverse Reactions: Allergies No Known Allergies Allergy (Unverified 03/03/18 10:34) Home Medications: Home Meds Medication Instructions Recorded Confirmed Atorvastatin [Lipitor] 20 mg PO DAILY 03/03/18 03/06/18 Cetirizine HCl [Zyrtec Allergy] 10 mg PO DAILY 03/03/18 03/03/18 Cyclobenzaprine [Cyclobenzaprine 10 mg PO DAILY 03/03/18 03/03/18 HCl] Diclofenac Sodium [Voltaren] 100 gm TP BID 03/03/18 03/03/18 Fluticasone Nasal [Flonase] 2 sprays NS DAILY 03/03/18 03/06/18 Montelukast [Singulair] 10 mg PO DAILY 03/03/18 03/03/18 metFORMIN [glucOPHAGE] 500 mg PO BID 03/03/18 03/06/18 traMADol [Ultram] 50 mg PO BID 03/03/18 03/06/18 Review of Systems - Physician Review All systems were reviewed & negative as marked: Yes - Review of Systems Constitutional: absent: Fevers, Night Sweats Respiratory: absent: SOB, Cough Cardiovascular: Chest Pain Gastrointestinal: absent: Abdominal Pain, Diarrhea, Nausea, Vomiting Musculoskeletal: absent: Back Pain, Neck Pain Neurological: absent: Headache, Dizziness Physical Exam Vital Signs Reviewed: Yes Vital Signs Temp Pulse Resp BP Pulse Ox 04/11/18 21:15 81 18 139/95 H 100 04/11/18 17:56 98.2 F 80 25 H 144/90 99 Temperature: Afebrile Blood Pressure: Hypertensive Pulse: Regular Respiratory Rate: Normal Appearance: Positive for: Well-Appearing Mental Status: Positive for: Alert and Oriented X 3 - Systems Exam Head: Present: Atraumatic, Normocephalic Pupils: Present: PERRL Extroacular Muscles: Present: EOMI Conjunctiva: Present: Normal Mouth: Present: Moist Mucous Membranes Neck: Present: Normal Range of Motion Respiratory/Chest: Present: Clear to Auscultation, Good Air Exchange, Tender to Palpation (Anterior lateral right ribs tenderness, worse with movement), Other ( No mass, reddness, warmth, or abscess appreciated). No: Respiratory Distress, Accessory Muscle Use Cardiovascular: Present: Regular Rate and Rhythm, Normal S1, S2. No: Murmurs Abdomen: No: Tenderness, Distention, Peritoneal Signs Back: Present: Normal Inspection Upper Extremity: Present: Normal Inspection. No: Cyanosis, Edema Lower Extremity: Present: Normal Inspection. No: Edema Neurological: Present: GCS=15, CN II-XII Intact, Speech Normal Skin: Present: Warm, Dry, Normal Color. No: Rashes Psychiatric: Present: Alert, Oriented x 3, Normal Insight, Normal Concentration Medical Decision Making ED Course and Treatment: 04/11/18 18:02 Impression: Patient is a 47 year old male complaining of constant aching, sharp chest pain that started 3 days ago. Differential Diagnosis included but are not limited to: Most likely musculoskeletal pain, less likely ACS. Plan: --EKG --Cardiac Enzymes --Flexeril --Toradol --chest and right rib X-ray -- Reassess and disposition Prior Visits: Notes and results from previous visits were reviewed. Progress Notes: 04/11/18 17:53 EKG shows NSR at 82 BPM with normal intervals and no ST elevation. No change from previous EKG on 03/03/18. Interpreted by me. 04/11/18 19:46 Chest X-ray shows no acute process. Interpreted by me. 04/11/18 19:56 Reevaluation: On reevaluation the patient feels better and is in no acute distress. I have discussed the results and plan with the patient, who expresses understanding. Patient given the opportunity to ask question, all questions were answered and there is agreement with the plan to discharge the patient home with prescription for Flexeril and Motrin. Patient is stable for discharge. Patient was instructed to follow up with physician/clinic in 1-2 days or return if symptoms persist/worsen or new concerning symptoms arise. - Lab Interpretations Lab Results: 04/11/18 18:10 04/11/18 18:10 Lab Results 04/11/18 18:10: Sodium 145, Potassium 4.6, Chloride 108 H, Carbon Dioxide 28, Anion Gap 13, BUN 18, Creatinine 1.1, Est GFR ( Amer) > 60, Est GFR (Non- Af Amer) > 60, Random Glucose 110, Calcium 9.1, Total Bilirubin 0.8, AST 24, ALT 39, Alkaline Phosphatase 65, Lactate Dehydrogenase 591, Total Creatine Kinase 191, Troponin I < 0.01, Total Protein 6.9, Albumin 3.8, Globulin 3.1, Albumin/Globulin Ratio 1.2 04/11/18 18:10: WBC 4.6 D, RBC 3.66, Hgb 10.1 L D, Hct 32.6 L, MCV 89.1, MCH 27.6, MCHC 31.0, RDW 16.8 H, Plt Count 209, MPV 12.1 H, Gran % 56.5, Lymph % ( Auto) 34.6, Foard % (Auto) 7.2 H, Eos % (Auto) 1.5, Baso % (Auto) 0.2, Gran # 2.60, Lymph # (Auto) 1.6, Foard # (Auto) 0.3, Eos # (Auto) 0.1, Baso # (Auto) 0.01 I have reviewed the lab results: Yes - RAD Interpretation Radiology Orders: 04/11/18 17:54 RIBS RIGHT & PA CHEST [RAD] Stat Chief Inspector: ED Physician - EKG Interpretation Interpreted by ED Physician: Yes Type: 12 lead EKG - Medication Orders Current Medication Orders: Discontinued Medications Cyclobenzaprine HCl (Flexeril) 10 mg PO STAT STA Stop: 04/11/18 17:56 Last Admin: 04/11/18 18:29 Dose: 10 mg Ketorolac Tromethamine (Toradol) 30 mg IVP STAT STA Stop: 04/11/18 17:55 Last Admin: 04/11/18 18:29 Dose: 30 mg MAR Pain Assessment [place] 04/11/18 18:29 [facility] [place]11/18 18:30 [facility] [id number] Pain Reassessment Is this a pain reassessment? No Sleep Is patient sleeping during reassessment? No Presence of Pain Presence of Pain Yes Pain Scale Used Pain Scale Used Numeric Location Left, Right or Bilateral Right Pain Location Body Site Chest IVP Administration Document 04/11/18 18:29 [facility] [place]Rec[place]/11/18 18:30 [facility] [id number] Charges for Administration # of IVP Administrations 1 ADELE Risk Score for UA/NSTEMI - ADELE Risk Score Age > 64: NO 3 or more CAD Risk Factors: NO Known CAD (Stenosis greater than 50%): NO Aspirin use in past 7 days: NO Severe Angina: NO EKG ST changes greater than 0.5mm: NO Positive Cardiac Marker: NO ADELE Score: 0 % risk at 14 days of: all cause mortality, new or recurrent PR, or severe recurrent ischemia requiring urgen revascularization: 5% - Scribe Statement The provider has reviewed the documentation as recorded by the Scribe Winston I[place] Provider Scribe Attestation: All medical record entries made by the Scribe were at my direction and personally dictated by me. I have reviewed the chart and agree that the record accurately reflects my personal performance of the history, physical exam, medical decision making, and the department course for this patient. I have also personally directed, reviewed, and agree with the discharge instructions and disposition. Disposition/Present on Arrival - Present on Arrival Any Indicators Present on Arrival: No History of DVT/PE: No History of Uncontrolled Diabetes: No Urinary Catheter: No History of Decub. Ulcer: No History Surgical Site Infection Following: None - Disposition Have Diagnosis and Disposition been Completed?: Yes Diagnosis: Muscle strain, Chest pain Disposition: HOME/ ROUTINE Disposition Time: 19:57 Patient Plan: Discharge Condition: IMPROVED Discharge Instructions (ExitCare): Muscle Strain, Chest Pain (ED) Additional Instructions: KAR DHILLON, thank you for letting us take care of you today. Your provider was Akil Frost DO and you were treated for CHEST PAIN/Muscle strain. The emergency medical care you received today was directed at your acute symptoms. If you were prescribed any medication, please fill it and take as directed. It may take several days for your symptoms to resolve. Return to the Emergency Department if your symptoms worsen, do not improve, or if you have any other problems. Please contact your doctor or call one of the physicians/clinics you have been referred to that are listed on the Patient Visit Information form that is included in your discharge packet. Bring any paperwork you were given at discharge with you along with any medications you are taking to your follow up visit. Our treatment cannot replace ongoing medical care by a primary care provider outside of the emergency department. Thank you for allowing the [facility] team to be part of your care today. If you had an X-Ray or CT scan: A Radiologist will review the ED reading if any change in treatment is needed we will contact you. If you had a blood, urine, or wound culture: It will take several days for the results, if any change in treatment is needed we will contact you. If you had an STI test: It will take 48 hours for the results. Please call after 1 week if you have not heard back. Prescriptions: Cyclobenzaprine [Flexeril] 5 mg PO TID PRN #20 tab PRN Reason: Muscle Spasm Ibuprofen [Motrin] 600 mg PO Q6 PRN #30 tab PRN Reason: Pain, Moderate (4-7) Referrals: Elina Garcia MD [Family Provider] - Follow up with primary Forms: [facility] (Scottish), WORK NOTE
[2018-04-11 17:57] VITALS: TEMP 98.2
[2018-04-11 18:45] LABS: BASO # 0.01 K/mm3 (0.0-2.0); BASO % 0.2 % (0.0-3.0); EOS # 0.1 (0.0-0.7); EOS % 1.5 % (1.5-5.0); GRAN # 2.6 (1.4-6.5); GRAN % 56.5 % (50.0-68.0); HEMOGLOBIN 10.1 g/dL (14.0-18.0); LYMPH # 1.6 (1.2-3.4); LYMPH % 34.6 % (22.0-35.0); MEAN CELL VOLUME 89.1 fl (80.0-105.0); MEAN CORPUSCULAR HEMOGLOBIN 27.6 pg (25.0-35.0); MEAN PLATELET VOLUME 12.1 fl (7.0-11.0); MONO # 0.3 (0.1-0.6); MONO % 7.2 % (1.0-6.0); RBC 3.66 10^6/uL (3.5-6.1); RED CELL DISTRIBUTION WIDTH 16.8 % (11.5-14.5); WHITE BLOOD COUNT 4.6 10^3/ul (4.5-11.0)
[2018-04-11 18:56] LABS: ALB/GLOB RATIO 1.2 (1.1-1.8); ALBUMIN 3.8 g/dL (3.0-4.8); ALT/SGPT 39 U/L (7-56); AST/SGOT 24 U/L (17-59); BLOOD UREA NITROGEN 18 mg/dL (7-21); CALCIUM 9.1 mg/dL (8.4-10.5); GFR AFRICAN-AMERICAN > 60; GFR NON-AFRICAN AMERICAN > 60
[2018-04-11 19:07] LABS: TROPONIN I < 0.01 ng/mL
[2018-04-11 21:33] VITALS: BP 139/95; PULSE 81; RESP 18; O2SAT 100
--- NOTE | 2018-04-12 08:55 | RAD ---
PROCEDURE: 03/03/2018 HISTORY: right rib/chest pain COMPARISON: None available. TECHNIQUE: Frontal radiograph of the chest and multiple oblique radiographs of the right ribs were obtained. FINDINGS: RIGHT RIBS: No fracture or focal lesion visualized. LUNGS: Clear. PLEURA: No pneumothorax or pleural fluid. CARDIOVASCULAR: Normal sized heart. No pulmonary vascular congestion. OTHER FINDINGS: None. IMPRESSION: Unremarkable radiographs of the chest and right ribs. No right rib fracture.
--- NOTE | 2018-04-12 23:53 | CARD ---
APPROVED REPORT EKG Measurement Heart [id number] <Conclusion> Normal sinus rhythm Possible Anterior infarct, age undetermined Abnormal ECG
== END 2018-04-11 21:15 | disposition home or self-care (01) ==
LOC: ED 17:35
DX: R07.9 Chest pain, unspecified (principal); S29.011A Strain of muscle and tendon of front wall of thorax, initial encounter; X50.0XXA Overexertion from strenuous movement or load, initial encounter; Y93.B9 Activity, other involving muscle strengthening exercises; Y92.39 Other specified sports and athletic area as the place of occurrence of the external cause; I10 Essential (primary) hypertension; E11.9 Type 2 diabetes mellitus without complications; Z86.73 Personal history of transient ischemic attack (TIA), and cerebral infarction without residual deficits
CPT/HCPCS: 71101; 80053; 82550; 83615; 84484; 85025; 93005; 96374; 99284; J1885

== ENCOUNTER 2018-06-27 11:40 | Emergency (ER) | payer MEDICARE, MEDICAID ==
[2018-06-27 11:40] VITALS: BMI 39.0
[2018-06-27 12:06] VITALS: RESP 18
--- NOTE | 2018-06-27 12:25 | ED PDOC ---
Arrival/HPI - General Chief Complaint: Trauma Time Seen by Provider: 06/27/18 11:47 Historian: Patient - History of Present Illness Narrative History of Present Illness (Text): 06/27/18 12:19 47yo male with pmhx of diabetes bib EMS for complaint of lower back pains s/p trauma. states he fell yesterday and landed backward on his back, hitting his posterior head on the ground yesterday. states he came to ED today for the persistent lower back pain. Did not take any analgesia for the pain. He denies LOC, focal weakness, urinary symptoms, saddle anesthesia, nausea, vomiting, headache, any other complaint. Past Medical History - Provider Review Nursing Documentation Reviewed: Yes - Infectious Disease Hx of Infectious Diseases: None - Cardiac Hx Hypertension: Yes - Pulmonary Hx Respiratory Disorders: No - Neurological Hx Neurological Disorder: Yes HX Cerebrovascular Accident: Yes Other/Comment: "I AM DISABLED" - HEENT Hx HEENT Disorder: No - Renal Hx Renal Disorder: No - Endocrine/Metabolic Hx Endocrine Disorders: Yes Hx Diabetes Mellitus Type 2: Yes Other/Comment: "I HAD A LITTLE DIABETES BEFORE" - Hematological/Oncological Hx Blood Disorders: No - Integumentary Hx Dermatological Disorder: No - Musculoskeletal/Rheumatological Hx Musculoskeletal Disorders: No - Gastrointestinal Hx Gastrointestinal Disorders: No - Genitourinary/Gynecological Hx Genitourinary Disorders: No - Psychiatric Hx Psychophysiologic Disorder: Yes Hx Anxiety: Yes Hx Depression: Yes Hx Schizophrenia: Yes Hx Substance Use: No - Surgical History Hx Tonsillectomy: Yes Other/Comment: "EAR ,NOSE,THROAT SURGERY" - Anesthesia Hx Anesthesia Reactions: No Family/Social History - Physician Review Nursing Documentation Reviewed: Yes Family/Social History: Unknown Family HX Smoking Status: Unknown If Ever Smoked Hx Alcohol Use: No Hx Substance Use: No Allergies/Home Meds Allergies/Adverse Reactions: Allergies No Known Allergies Allergy (Unverified 03/03/18 10:34) Home Medications: Home Meds Medication Instructions Recorded Confirmed Atorvastatin [Lipitor] 20 mg PO DAILY 03/03/18 03/06/18 Cetirizine HCl [Zyrtec Allergy] 10 mg PO DAILY 03/03/18 03/03/18 Cyclobenzaprine [Cyclobenzaprine 10 mg PO DAILY 03/03/18 03/03/18 HCl] Diclofenac Sodium [Voltaren] 100 gm TP BID 03/03/18 03/03/18 Fluticasone Nasal [Flonase] 2 sprays NS DAILY 03/03/18 03/06/18 Montelukast [Singulair] 10 mg PO DAILY 03/03/18 03/03/18 metFORMIN [glucOPHAGE] 500 mg PO BID 03/03/18 03/06/18 traMADol [Ultram] 50 mg PO BID 03/03/18 03/06/18 Review of Systems - Physician Review All systems were reviewed & negative as marked: Yes - Review of Systems Constitutional: Normal Eyes: Normal ENT: Normal Respiratory: Normal Cardiovascular: Normal Gastrointestinal: Normal Genitourinary Male: Normal Musculoskeletal: Back Pain Skin: Normal Neurological: Normal Endocrine: Normal Hemo/Lymphatic: Normal Psychiatric: Normal Physical Exam Vital Signs Reviewed: Yes Vital Signs Temp Pulse Resp BP Pulse Ox 06/27/18 14:16 97.3 F L 76 18 136/87 99 06/27/18 12:01 98.5 F 88 18 165/90 H 97 Temperature: Afebrile Blood Pressure: Normal Pulse: Regular Respiratory Rate: Normal Appearance: Positive for: Well-Appearing, Non-Toxic, Comfortable Pain Distress: None Mental Status: Positive for: Alert and Oriented X 3 - Systems Exam Head: Present: Atraumatic, Normocephalic Pupils: Present: PERRL Extroacular Muscles: Present: EOMI Conjunctiva: Present: Normal Mouth: Present: Moist Mucous Membranes Neck: Present: Normal Range of Motion Respiratory/Chest: Present: Clear to Auscultation, Good Air Exchange. No: Respiratory Distress, Accessory Muscle Use Cardiovascular: Present: Regular Rate and Rhythm, Normal S1, S2. No: Murmurs Abdomen: No: Tenderness, Distention, Peritoneal Signs Back: Present: Paraspinal Tenderness (Diffuse paralumbar tenderness), Pain with Leg Raise (B/L). No: Midline Tenderness Upper Extremity: Present: Normal Inspection. No: Cyanosis, Edema Lower Extremity: Present: Normal Inspection. No: Edema Neurological: Present: GCS=15, CN II-XII Intact, Speech Normal Skin: Present: Warm, Dry, Normal Color. No: Rashes Psychiatric: Present: Alert, Oriented x 3, Normal Insight, Normal Concentration Medical Decision Making ED Course and Treatment: 06/27/18 19:40 PT in ED for stated history. His pain was controlled in ED with medication. On reevaluation he was ambulatory and noted that his pain improved. He was neurologically intact LS xray BONES: Alignment appears satisfactory. No acute displaced fracture or subluxation evident. Degenerative changes including osteophyte formation. Facet hypertrophy. DISC SPACES: Unremarkable. OTHER FINDINGS: None. IMPRESSION: No acute displaced fracture identified. Degenerative changes. Result was DW the pt and he was referred to his PMD/ortho. - RAD Interpretation Radiology Orders: 06/27/18 12:16 LS SPINE WITH OBL > 18 YRS OLD [RAD] Stat - Medication Orders Current Medication Orders: Discontinued Medications Diazepam (Valium) 5 mg PO ONCE ONE PRN Reason: Protocol Stop: 06/27/18 12:17 Last Admin: 06/27/18 12:33 Dose: 5 mg Ketorolac Tromethamine (Toradol) 60 mg IM STAT STA Stop: 06/27/18 12:17 Last Admin: 06/27/18 12:33 Dose: 60 mg NETTE Pain Assessment Document 06/27/18 12:33 PATRICIA (Rec: 06/27/18 12:33 PATRICIA NEIL-PC) Pain Reassessment Is this a pain reassessment? No Sleep Is patient sleeping during reassessment? No Presence of Pain Presence of Pain Yes IM Administration Charges Document 06/27/18 12:33 PATRICIA (Rec: 06/27/18 12:33 PATRICIA NEIL-PC) Charges for Administration # of IM Administrations 1 Re-Assess: NETTE Pain Assessment Document 06/27/18 13:33 PATRICIA (Rec: 06/27/18 14:36 PATRICIA NEIL-PC) Pain Reassessment Is this a pain reassessment? Yes Sleep Is patient sleeping during reassessment? No Presence of Pain Presence of Pain Yes Pain Scale Used Pain Scale Used Numeric Description Description Intermittent Intensity of Pain at present 2 Disposition/Present on Arrival - Present on Arrival Any Indicators Present on Arrival: No History of DVT/PE: No History of Uncontrolled Diabetes: No Urinary Catheter: No History of Decub. Ulcer: No History Surgical Site Infection Following: None - Disposition Have Diagnosis and Disposition been Completed?: Yes Diagnosis: Back pain Disposition: HOME/ ROUTINE Disposition Time: 13:40 Patient Plan: Discharge Condition: STABLE Discharge Instructions (ExitCare): Low Back Pain (DC) Additional Instructions: Follow up with your doctor Return to ED for any new or worsening symptoms Prescriptions: Baclofen [Lioresal] 20 mg PO DAILY #12 tab Lidocaine 5% [Lidoderm] 1 each TP BID #10 patch Naproxen [Naprosyn] 500 mg PO BID #20 tablet Referrals: Elina Garcia MD [Primary Care Provider] - Follow up with primary Forms: [employer] ([place])
--- NOTE | 2018-06-27 13:31 | RAD ---
Date of service: 06/27/2018 PROCEDURE: Radiographs of the Lumbar Spine. HISTORY: back pain s/p trauma COMPARISON: None available. FINDINGS: BONES: Alignment appears satisfactory. No acute displaced fracture or subluxation evident. Degenerative changes including osteophyte formation. Facet hypertrophy. DISC SPACES: Unremarkable. OTHER FINDINGS: None. IMPRESSION: No acute displaced fracture identified. Degenerative changes.
[2018-06-27 14:18] VITALS: BP 136/87; PULSE 76; TEMP 97.3; O2SAT 99
== END 2018-06-27 14:37 | disposition home or self-care (01) ==
LOC: ED 11:40
DX: M54.5 Low back pain (principal); E11.9 Type 2 diabetes mellitus without complications; F20.9 Schizophrenia, unspecified; I10 Essential (primary) hypertension; Z86.73 Personal history of transient ischemic attack (TIA), and cerebral infarction without residual deficits
CPT/HCPCS: 72110; 96372; 99284; J1885

== ENCOUNTER 2018-06-28 22:41 | Emergency (ER) | payer MEDICARE, MEDICAID ==
[2018-06-28 22:51] VITALS: BMI 42.3
[2018-06-28 22:57] VITALS: TEMP 98.5
--- NOTE | 2018-06-28 23:46 | ED PDOC ---
Arrival/HPI - General Chief Complaint: Back Pain Time Seen by Provider: 06/28/18 23:18 Historian: Patient - History of Present Illness Narrative History of Present Illness (Text): 06/28/18 23:47 47 yr old male w/ hx of DM2 and Cholesterol p/w back pain s/p fall 4d prior. Pt notes that he slipped on coffee, hit his back. He denies any head trauma, hip pain, and only L sided lower back pain. He notes the pain is throbbing, exactly alike his previous visit here. He denies any enuresis, encoparesis, weakness, shooting pain down his leg, or loss of sensation in his legs. He denies any hx of IVDU. He notes that the pain medications he was given are not helping his pain. No blood thinners usage. No other trauma besides the mechanical fall. No rashes. No other complaints. 06/29/18 00:03 EK, NSR, No stemi. Past Medical History - Provider Review Nursing Documentation Reviewed: Yes - Travel History Have you recently traveled outside [place] w/in the past 3 mons?: No - Infectious Disease Hx of Infectious Diseases: None - Cardiac Hx Hypertension: Yes - Pulmonary Hx Respiratory Disorders: No Hx Asthma: Yes Hx Bronchitis: Yes - Neurological Hx Neurological Disorder: Yes HX Cerebrovascular Accident: Yes Other/Comment: "I AM DISABLED" - HEENT Hx HEENT Disorder: No - Renal Hx Renal Disorder: No - Endocrine/Metabolic Hx Endocrine Disorders: Yes Hx Diabetes Mellitus Type 2: Yes - Hematological/Oncological Hx Blood Disorders: No - Integumentary Hx Dermatological Disorder: No - Musculoskeletal/Rheumatological Hx Musculoskeletal Disorders: No - Gastrointestinal Hx Gastrointestinal Disorders: No - Genitourinary/Gynecological Hx Genitourinary Disorders: No - Psychiatric Hx Psychophysiologic Disorder: Yes Hx Anxiety: Yes Hx Depression: Yes Hx Schizophrenia: Yes Hx Substance Use: No - Surgical History Hx Tonsillectomy: Yes Other/Comment: "EAR ,NOSE,THROAT SURGERY" - Anesthesia Hx Anesthesia: Yes Hx Anesthesia Reactions: No Family/Social History - Physician Review Nursing Documentation Reviewed: Yes Family/Social History: No Known Family HX Smoking Status: Unknown If Ever Smoked Hx Alcohol Use: No Hx Substance Use: No Allergies/Home Meds Allergies/Adverse Reactions: Allergies No Known Allergies Allergy (Unverified 06/28/18 22:47) Home Medications: Home Meds Medication Instructions Recorded Confirmed Atorvastatin [Lipitor] 20 mg PO DAILY 03/03/18 03/06/18 Cetirizine HCl [Zyrtec Allergy] 10 mg PO DAILY 03/03/18 03/03/18 Cyclobenzaprine [Cyclobenzaprine 10 mg PO DAILY 03/03/18 03/03/18 HCl] Diclofenac Sodium [Voltaren] 100 gm TP BID 03/03/18 03/03/18 Fluticasone Nasal [Flonase] 2 sprays NS DAILY 03/03/18 03/06/18 Montelukast [Singulair] 10 mg PO DAILY 03/03/18 03/03/18 metFORMIN [glucOPHAGE] 500 mg PO BID 03/03/18 03/06/18 Review of Systems - Review of Systems Constitutional: Normal Eyes: Normal ENT: Normal Respiratory: Normal Cardiovascular: Normal Gastrointestinal: Normal Genitourinary Male: Normal Musculoskeletal: Back Pain Skin: Normal Neurological: Normal Endocrine: Normal Hemo/Lymphatic: Normal Psychiatric: Normal Physical Exam Vital Signs Reviewed: Yes Vital Signs Temp Pulse Resp Pulse Ox 06/28/18 22:56 98.5 F 91 H 20 95 Temperature: Afebrile Blood Pressure: Normal Pulse: Regular Respiratory Rate: Normal Appearance: Positive for: Well-Appearing, Non-Toxic, Comfortable Pain Distress: None Mental Status: Positive for: Alert and Oriented X 3 - Systems Exam Head: Present: Atraumatic, Normocephalic Pupils: Present: PERRL Extroacular Muscles: Present: EOMI Conjunctiva: Present: Normal Mouth: Present: Moist Mucous Membranes Neck: Present: Normal Range of Motion Respiratory/Chest: Present: Clear to Auscultation, Good Air Exchange. No: Respiratory Distress, Accessory Muscle Use Cardiovascular: Present: Regular Rate and Rhythm, Normal S1, S2. No: Murmurs Abdomen: No: Tenderness, Distention, Peritoneal Signs Back: Present: Normal Inspection, Paraspinal Tenderness (L), Other. No: Midline Tenderness, Pain with Leg Raise, Decubitus Ulcer Upper Extremity: Present: Normal Inspection. No: Cyanosis, Edema Lower Extremity: Present: Normal Inspection. No: Edema Neurological: Present: GCS=15, CN II-XII Intact, Speech Normal, Motor Func Grossly Intact, Normal Sensory Function (no saddle anesthesia) Skin: Present: Warm, Dry, Normal Color. No: Rashes Psychiatric: Present: Alert, Oriented x 3, Normal Insight, Normal Concentration Medical Decision Making ED Course and Treatment: 06/28/18 23:59 47 yr old male w/ hx of DM2 and HLD presents for revisit to this ED after fall 4d prior. No LOC of head impact. No blood thinner usage. Pt still having pain however, without any GI or complaints or any indication of cauda equina. Given return visit and recurrent pain will seek imaging and pain control as well as labs. 06/29/18 02:[address] Abdomen and Pelvis With Intravenous Contrast IMPRESSION: No acute findings. Thank you for allowing us to participate in the care of your patient. Dictated and Authenticated by: Remy Kumar MD 06/29/2018 2:31 AM Eastern Time ([place] & [place] CT Lumbar Spine Without Intravenous Contrast IMPRESSION: No acute findings. Thank you for allowing us to participate in the care of your patient. Dictated and Authenticated by: Remy Kumar MD 06/29/2018 2:31 AM Eastern Time ([place] & [place]) neuro exam remains stable pt in NAD with VSS, ambulating well around ED [place], [place] percocet, will give 3 tabs and have pt follow up w/ pmd. pt instructed to d/c tramadol when taking percocet. pt endorsed understanding 06/29/18 02:45 - Lab Interpretations Lab Results: 06/28/18 23:52 06/28/18 23:52 Lab Results 06/28/18 23:52: WBC 5.4, RBC 4.48, Hgb 12.1 L D, Hct 38.0 L, MCV 84.8 D, MCH 27.0, MCHC 31.8, RDW 15.5 H, Plt Count 170, MPV 13.5 H, Gran % 53.8, Lymph % ( Auto) 37.4 H, Sawyer % (Auto) 6.6 H, Eos % (Auto) 1.5, Baso % (Auto) 0.7, Gran # 2.92, Lymph # (Auto) 2.0, Sawyer # (Auto) 0.4, Eos # (Auto) 0.1, Baso # (Auto) 0.04 06/28/18 23:52: Sodium 143, Potassium 4.1, Chloride 107, Carbon Dioxide 25, Anion Gap 15, BUN 18, Creatinine 1.1, Est GFR ( Amer) > 60, Est GFR (Non- Af Amer) > 60, Random Glucose 102, Calcium 9.1, Total Bilirubin 0.4, AST 22, ALT 29, Alkaline Phosphatase 79, Total Protein 7.4, Albumin 4.0, Globulin 3.4, Albumin/Globulin Ratio 1.2 - RAD Interpretation Radiology Orders: 06/28/18 23:36 LUMBAR SPINE W/O CONTRAST [CT] Stat 06/28/18 23:39 ABDOMEN & PELVIS [ABD & PELVIS IV CONTRAST ONLY] [CT] Stat - Medication Orders Current Medication Orders: Discontinued Medications Oxycodone/Acetaminophen (Percocet 5/325 Mg Tab) 1 tab PO STAT STA Stop: 06/28/18 23:39 Last Admin: 06/28/18 23:52 Dose: 1 tab MAR Pain Assessment Document 06/28/18 23:52 SS (Rec: 06/29/18 00:04 SS [id number]) Pain Reassessment Is this a pain reassessment? No Sleep Is patient sleeping during reassessment? No Presence of Pain Presence of Pain Yes Location Left, Right or Bilateral Left Upper or Lower Lower Disposition/Present on Arrival - Present on Arrival Any Indicators Present on Arrival: No History of DVT/PE: No History of Uncontrolled Diabetes: No Urinary Catheter: No History of Decub. Ulcer: No History Surgical Site Infection Following: None - Disposition Have Diagnosis and Disposition been Completed?: Yes Diagnosis: Muscle strain, Lumbago Disposition: HOME/ ROUTINE Disposition Time: 02:43 Condition: GOOD Discharge Instructions (ExitCare): Muscle Strain, Low Back Pain in Adults Additional Instructions: DO NOT TAKE PERCOCET AND TRAMADOL TOGETHER. DO NOT TAKE TRAMADOL WHILE TAKING PERCOCET KAR DHILLON, thank you for letting us take care of you today. Your provider was Alfredo Tran and you were treated for BACK PAIN. The emergency medical care you received today was directed at your acute symptoms. If you were prescribed any medication, please fill it and take as directed. It may take several days for your symptoms to resolve. Return to the Emergency Department if your symptoms worsen, do not improve, or if you have any other problems. Please contact your doctor or call one of the physicians/clinics you have been referred to that are listed on the Patient Visit Information form that is included in your discharge packet. Bring any paperwork you were given at discharge with you along with any medications you are taking to your follow up visit. Our treatment cannot replace ongoing medical care by a primary care provider outside of the emergency department. Thank you for allowing the [facility] team to be part of your care today. If you had an X-Ray or CT scan: A Radiologist will review the ED reading if any change in treatment is needed we will contact you. If you had a blood, urine, or wound culture: It will take several days for the results, if any change in treatment is needed we will contact you. If you had an STI test: It will take 48 hours for the results. Please call after 1 week if you have not heard back. Prescriptions: oxyCODONE/Acetaminophen [Percocet 5/325 mg Tab] 1 ea PO Q12H PRN 2 Days #3 tab PRN Reason: Pain, Moderate (4-7) Forms: [facility] ([place])
[2018-06-28] MEDS: Oxycodone/Acetaminophen 5/325 mg Tab PO STA (23:52)
[2018-06-29 00:05] LABS: BASO # 0.04 K/mm3 (0.0-2.0); BASO % 0.7 % (0.0-3.0); EOS # 0.1 (0.0-0.7); EOS % 1.5 % (1.5-5.0); GRAN # 2.92 (1.4-6.5); GRAN % 53.8 % (50.0-68.0); HEMOGLOBIN 12.1 g/dL (14.0-18.0); LYMPH % 37.4 % (22.0-35.0); MEAN CORPUSCULAR HGB CONC 31.8 g/dl (31.0-37.0); MEAN PLATELET VOLUME 13.5 fl (7.0-11.0); MONO # 0.4 (0.1-0.6); MONO % 6.6 % (1.0-6.0); RBC 4.48 10^6/uL (3.5-6.1); RED CELL DISTRIBUTION WIDTH 15.5 % (11.5-14.5); WHITE BLOOD COUNT 5.4 10^3/ul (4.5-11.0)
[2018-06-29 00:13] LABS: MEAN CELL VOLUME 84.8 fl (80.0-105.0)
[2018-06-29 00:15] LABS: ALB/GLOB RATIO 1.2 (1.1-1.8); ALT/SGPT 29 U/L (7-56); AST/SGOT 22 U/L (17-59); BLOOD UREA NITROGEN 18 mg/dL (7-21); CALCIUM 9.1 mg/dL (8.4-10.5); GFR NON-AFRICAN AMERICAN > 60
[2018-06-29] MEDS ORDERED: Iohexol 350 MG/100 ML VIAL ONE (00:41)
[2018-06-29 03:12] VITALS: BP 147/87; PULSE 80
[2018-06-29 03:17] VITALS: RESP 20; O2SAT 97
--- NOTE | 2018-06-29 07:32 | CT ---
Date of service: 06/29/2018 PROCEDURE: CT Abdomen and Pelvis without intravenous contrast HISTORY: back pain s/p fall ?retroperitoneal hematoma COMPARISON: None. TECHNIQUE: Technique. Contrast dose: Radiation dose: Total exam DLP = 1154 mGy-cm. This CT exam was performed using one or more of the following dose reduction techniques: Automated exposure control, adjustment of the mA and/or kV according to patient size, and/or use of iterative reconstruction technique. FINDINGS: LOWER THORAX: Multiple old right lateral rib fractures. LIVER: Unremarkable. No gross lesion or ductal dilatation. GALLBLADDER AND BILE DUCTS: Unremarkable. PANCREAS: Unremarkable. No gross lesion or ductal dilatation. SPLEEN: Unremarkable. ADRENALS: Unremarkable. No mass. KIDNEYS AND URETERS: Punctate right renal calculus. . No hydronephrosis. No solid mass. VASCULATURE: Unremarkable. No aortic aneurysm. BOWEL: Unremarkable. No obstruction. No gross mural thickening. APPENDIX: Unremarkable. Normal appendix. PERITONEUM: Unremarkable. No free fluid. No free air. LYMPH NODES: Unremarkable. No enlarged lymph nodes. BLADDER: Unremarkable. REPRODUCTIVE: Unremarkable. BONES: No acute fracture. OTHER FINDINGS: None. IMPRESSION: No acute findings. Small right renal CT
--- NOTE | 2018-06-29 07:38 | CT ---
Date of service: 06/29/2018 PROCEDURE: CT Lumbar Spine without contrast HISTORY: fall 2d prior COMPARISON: None available. TECHNIQUE: Axial computed tomography images were obtained of the lumbar spine without the use of intravenous contrast. Coronal and sagittal reformatted images were created and reviewed. Radiation dose: Total exam DLP = 2298 mGy-cm. This CT exam was performed using one or more of the following dose reduction techniques: Automated exposure control, adjustment of the mA and/or kV according to patient size, and/or use of iterative reconstruction technique. FINDINGS: VERTEBRAE: Unremarkable. No fracture. Normal alignment. DISCS/SPINAL CANAL/NEURAL FORAMINA: L1-2: Unremarkable. L2-3: Unremarkable. L3-4: Unremarkable. L4-5: Unremarkable. L5-S1: Unremarkable. PARASPINAL SOFT TISSUES: Unremarkable. OTHER FINDINGS: None. IMPRESSION: Unremarkable CT of Lumbar Spine.
--- NOTE | 2018-06-29 09:50 | CARD ---
APPROVED REPORT Date of service: 06/28/2018 EKG Measurement Heart [id number] MD [id number] <Conclusion> Normal sinus rhythm PRWP No change
== END 2018-06-29 03:16 | disposition home or self-care (01) ==
LOC: ED 22:41
DX: M54.5 Low back pain (principal); S39.012A Strain of muscle, fascia and tendon of lower back, initial encounter; W19.XXXA Unspecified fall, initial encounter; E11.9 Type 2 diabetes mellitus without complications; I10 Essential (primary) hypertension; F20.9 Schizophrenia, unspecified
CPT/HCPCS: 72131; 74177; 80053; 85025; 93005; 99283; Q9967

== ENCOUNTER 2018-08-21 01:10 | Emergency (ER) | payer MEDICARE, MEDICAID ==
[2018-08-21 01:11] VITALS: BMI 42.3
--- NOTE | 2018-08-21 01:45 | ED PDOC ---
Arrival/HPI - General Chief Complaint: Upper Extremity Problem/Injury Time Seen by Provider: 08/21/18 01:35 Historian: Patient - History of Present Illness Narrative History of Present Illness (Text): 08/21/18 01:41 Anjum Og is a 48 year old male, whose past medical history includes diabetes, anxiety, schizophrenia, hypertension, and hyperlipidemia, who presents to the ED complaining of right upper arm pain. Patient states he recently had an injection to his upper right arm and is now experiencing pain to the area.Also states he strained his lower back.Patient denies any weakness/numbness/tingling in the extremity, decreased ROM, fever, chills, or any other complaints. Symptom Onset: Gradual Symptom Course: Unchanged Activities at Onset: Light Context: Home Past Medical History - Provider Review Nursing Documentation Reviewed: Yes - Infectious Disease Hx of Infectious Diseases: None - Cardiac Hx Hypertension: Yes - Pulmonary Hx Respiratory Disorders: No Hx Asthma: Yes Hx Bronchitis: Yes - Neurological Hx Neurological Disorder: Yes HX Cerebrovascular Accident: Yes Other/Comment: "I AM DISABLED" - HEENT Hx HEENT Disorder: No - Renal Hx Renal Disorder: No - Endocrine/Metabolic Hx Endocrine Disorders: Yes Hx Diabetes Mellitus Type 2: Yes - Hematological/Oncological Hx Blood Disorders: No - Integumentary Hx Dermatological Disorder: No - Musculoskeletal/Rheumatological Hx Musculoskeletal Disorders: No - Gastrointestinal Hx Gastrointestinal Disorders: No - Genitourinary/Gynecological Hx Genitourinary Disorders: No - Psychiatric Hx Psychophysiologic Disorder: Yes Hx Anxiety: Yes Hx Depression: Yes Hx Schizophrenia: Yes Hx Substance Use: No - Surgical History Hx Tonsillectomy: Yes Other/Comment: "EAR ,NOSE,THROAT SURGERY" - Anesthesia Hx Anesthesia: Yes Hx Anesthesia Reactions: No Family/Social History - Physician Review Nursing Documentation Reviewed: Yes Family/Social History: Unknown Family HX Smoking Status: Unknown If Ever Smoked Hx Alcohol Use: No Hx Substance Use: No Allergies/Home Meds Allergies/Adverse Reactions: Allergies No Known Allergies Allergy (Unverified 08/21/18 01:20) Home Medications: Home Meds Medication Instructions Recorded Confirmed Atorvastatin [Lipitor] 20 mg PO DAILY 03/03/18 08/21/18 Cetirizine HCl [Zyrtec Allergy] 10 mg PO DAILY 03/03/18 08/21/18 Cyclobenzaprine [Cyclobenzaprine 10 mg PO DAILY 03/03/18 08/21/18 HCl] Diclofenac Sodium [Voltaren] 100 gm TP BID 03/03/18 08/21/18 Fluticasone Nasal [Flonase] 2 sprays NS DAILY 03/03/18 08/21/18 Montelukast [Singulair] 10 mg PO DAILY 03/03/18 08/21/18 metFORMIN [glucOPHAGE] 500 mg PO BID 03/03/18 08/21/18 Review of Systems - Physician Review All systems were reviewed & negative as marked: Yes - Review of Systems Constitutional: Normal. absent: Fevers Eyes: Normal ENT: Normal Respiratory: Normal. absent: SOB, Cough Cardiovascular: Normal. absent: Chest Pain Gastrointestinal: Normal. absent: Abdominal Pain, Diarrhea, Nausea, Vomiting Genitourinary Male: Normal. absent: Dysuria, Frequency, Hematuria, Urinary Output Changes Musculoskeletal: Other (+right arm pain). absent: Back Pain, Neck Pain Skin: Normal. absent: Rash Neurological: Normal. absent: Headache, Dizziness Endocrine: Normal Hemo/Lymphatic: Normal Psychiatric: Normal Physical Exam Vital Signs Reviewed: Yes Temperature: Afebrile Blood Pressure: Normal Pulse: Regular Respiratory Rate: Normal Appearance: Positive for: Well-Appearing, Non-Toxic, Comfortable Pain Distress: None Mental Status: Positive for: Alert and Oriented X 3 - Systems Exam Head: Present: Atraumatic, Normocephalic Pupils: Present: PERRL Extroacular Muscles: Present: EOMI Conjunctiva: Present: Normal Mouth: Present: Moist Mucous Membranes Neck: Present: Normal Range of Motion Respiratory/Chest: Present: Clear to Auscultation, Good Air Exchange. No: Respiratory Distress, Accessory Muscle Use Cardiovascular: Present: Regular Rate and Rhythm, Normal S1, S2. No: Murmurs Abdomen: No: Tenderness, Distention, Peritoneal Signs Back: Present: Normal Inspection. No: Midline Tenderness, Pain with Leg Raise Upper Extremity: Present: Normal Inspection, Normal ROM, NORMAL PULSES, Neurovascularly Intact, Capillary Refill < 2s. No: Cyanosis, Edema, Tenderness, Erythema, Temperature Abnormalties, Deformity Lower Extremity: Present: Normal Inspection. No: Edema Neurological: Present: GCS=15, CN II-XII Intact, Speech Normal Skin: Present: Warm, Dry, Normal Color. No: Rashes Psychiatric: Present: Alert, Oriented x 3, Normal Insight, Normal Concentration Medical Decision Making ED Course and Treatment: 08/21/18 01:41 Impression: 48 year old male complaining of right upper arm pain s/p injection yesterday, Plan: -- Flexeril -- Motrin Progress Notes: - Scribe Statement The provider has reviewed the documentation as recorded by the Scribe Asuncion Katz All medical record entries made by the Scribe were at my direction and personally dictated by me. I have reviewed the chart and agree that the record a ccurately reflects my personal performance of the history, physical exam, medical decision making, and the department course for this patient. I have also personally directed, reviewed, and agree with the discharge instructions and disposition. Disposition/Present on Arrival - Present on Arrival Any Indicators Present on Arrival: No History of DVT/PE: No History of Uncontrolled Diabetes: No Urinary Catheter: No History of Decub. Ulcer: No History Surgical Site Infection Following: None - Disposition Have Diagnosis and Disposition been Completed?: Yes Diagnosis: Arm pain, Low back strain, Contusion, arm, upper Disposition: HOME/ ROUTINE Disposition Time: 04:50 Patient Plan: Discharge Condition: STABLE Discharge Instructions (ExitCare): Muscle Strain (DC), Contusion (DC) Additional Instructions: Avoid any strenuous physical activity/take meds as prescribed/follow up with your doctor this week Prescriptions: Cyclobenzaprine [Cyclobenzaprine HCl] 10 mg PO TID PRN #15 tab PRN Reason: Muscle Spasm Naproxen [Naprosyn] 500 mg PO BID PRN #14 tab PRN Reason: Pain Referrals: Elina Garcia MD [Primary Care Provider] - Follow up with primary Forms: Gift Card Combo (Welsh)
[2018-08-21 05:17] VITALS: BP 135/76; PULSE 85; RESP 18; O2SAT 99
[2018-08-21 05:30] VITALS: TEMP 97.9
== END 2018-08-21 05:15 | disposition home or self-care (01) ==
LOC: ED 01:10
DX: M79.621 Pain in right upper arm (principal); S40.021A Contusion of right upper arm, initial encounter; S39.012A Strain of muscle, fascia and tendon of lower back, initial encounter; X58.XXXA Exposure to other specified factors, initial encounter; E11.9 Type 2 diabetes mellitus without complications; E78.5 Hyperlipidemia, unspecified; F20.9 Schizophrenia, unspecified; I10 Essential (primary) hypertension